=== PATIENT | male | born 1960 | race Caucasian/White ===

== ENCOUNTER 2019-06-15 20:06 | Inpatient (IN) ==
[~2019-06-15 20:06] MED LIST: ETOMIDATE 2 MG/ML 20 ML VIAL IV ONE; SUCCINYLCHOLINE CHLORIDE 20 MG/ML 10 ML VIAL IV ONE
[2019-06-15] MEDS ORDERED: NITROGLYCERIN 60 SPRAYS/4.9 GM SPRAY ONE (20:30)
[2019-06-15] MEDS ORDERED: ASPIRIN CHEW 324 MG ONE (20:30)
[2019-06-15] MEDS ORDERED: NITROGLYCERIN SL 0.4 MG/TAB TAB SL STA (20:31)
[2019-06-15] MEDS ORDERED: LORazepam 0.5 MG/1 ML VIAL IV STA (20:31)
[2019-06-15] MEDS ORDERED: SODIUM CHLORIDE 0.9% 1000ML 1,000 ML IV STA (20:31)
[2019-06-15] MEDS ORDERED: TICAGRELOR 90 MG TAB PO ONE (20:33)
[2019-06-15] MEDS ORDERED: ONDANSETRON INJ 2 MG/ML 2 ML VIAL IV STA (20:35)
[2019-06-15] MEDS ORDERED: fentaNYL citrate 100 MCG/2 ML VIAL IV STA (20:35)
[2019-06-15] MEDS ORDERED: fentaNYL citrate 100 MCG/2 ML VIAL ONE ×3 (20:36→23:57)
[2019-06-15] MEDS ORDERED: ONDANSETRON INJ 2 MG/ML 2 ML VIAL ONE (20:36)
[2019-06-15 20:41] LABS: iSTAT Creatinine 1.4 mg/dl (0.6-1.3); iSTAT Hemoglobin 14.3 g/dl (14.0-18.0); iSTAT Ionized Calcium 1.19 mmol/l (1.12-1.32); iSTAT Potassium 2.7 mEq/L (3.3-5.0)
[2019-06-15] MEDS ORDERED: POTASSIUM CHLORIDE / WTR 10 MEQ/100 ML PLCT IV ONE (20:42)
[2019-06-15] MEDS ORDERED: POTASSIUM CHLORIDE 10 MEQ / 100ML WTR IV ONE (20:43)
[2019-06-15] MEDS ORDERED: HEPARIN (PORCINE) 1000 UNIT/ML 10 ML (CATH LAB USE ONLY) ONE (20:43)
[2019-06-15] MEDS ORDERED: NiCARDipine HCL INJ 2.5 MG/ML 10 ML AMP ONE (20:43)
[2019-06-15] MEDS ORDERED: MIDAZOLAM HCL 1 MG/ML 2ML VIAL ONE ×4 (20:44→23:00)
[2019-06-15] MEDS ORDERED: NITROGLYCERIN/D5W 100MCG/ML 20ML SYR ONE (20:44)
[2019-06-15 20:47] LABS: Basophils # (auto) 0.09 K/uL (0-0.2); Basophils % (auto) 0.5 %; Eosinophils # (auto) 0.56 K/uL (0-0.5); Eosinophils % (auto) 3.2 %; Hematocrit (blood only) 41.6 % (42-52); Hemoglobin 14.7 g/dL (14.0-18.0); Immature Granulocytes # (auto) 0.08 K/uL (0.00-0.02); Immature Granulocytes % (auto) 0.5 %; Lymphocytes # (auto) 4.65 K/uL (1.2-3.4); Lymphocytes % (auto) 26.9 %; Mean Corpuscular Hemoglobin 31.6 pg (25-34); Mean Corpuscular Hgb Conc 35.3 g/dL (32-36); Mean Corpuscular Volume 89.5 fL (80-100); Mean Platelet Volume 9.3 fL (7.4-10.4); Monocytes % (auto) 7.5 %; Neutrophils # (auto) 10.62 K/uL (1.4-6.5); Neutrophils % (auto) 61.4 %; Platelet Count 378 K/uL (130-400); RDW Coefficient of Variation 13.5 % (11.5-14.5); RDW Standard Deviation 44.3 fL (36.4-46.3); Red Blood Count 4.65 M/uL (4.7-6.1)
[2019-06-15] MEDS ORDERED: ASPIRIN 81 MG CHEW PO STA (20:51)
[2019-06-15] MEDS ORDERED: ATROPINE SULFATE 0.1 MG/ML 10ML SYR IV ONE ×2 (20:52→21:17)
[2019-06-15 20:53] LABS: Alanine Aminotransferase 79 U/L (12-78); Aspartate Aminotransferase 47 U/L (15-37); BUN Creatinine Ratio 12.2 (10-20); Blood Urea Nitrogen 18 mg/dl (7-18); Calcium 9.1 mg/dl (8.5-10.1); Carbon Dioxide 25 mmol/L (21-32); Chloride 104 mmol/L (98-107); Est GFR (African American) 58.8; Est GFR (Non-African American) 50.7; Glucose 171 mg/dl (70-99); Lipase 122 U/L (73-393); Magnesium 2.2 mg/dl (1.8-2.4); Potassium 2.7 mmol/L (3.5-5.1); Sodium 139 mmol/L (136-145)
[2019-06-15 20:55] LABS: Partial Thromboplastin Ratio 0.8; Partial Thromboplastin Time 22.8 Seconds (21.0-31.0); Prothrombin Time 10.4 Seconds (9.0-12.0)
[2019-06-15 21:04] LABS: Albumin Globulin Ratio 1.2 (0.9-2); Alkaline Phosphatase 75 U/L (45-117); Bilirubin,Total 0.6 mg/dl (0.2-1); Creatine Kinase 296 U/L (39-308); Creatine Kinase MB 2.2 ng/ml (0.5-3.6); Globulin 3.4 gm/dl (2.5-4.0); Total Protein 7.4 gm/dl (6.4-8.2); Troponin I < 0.015 ng/ml (0-0.045)
[2019-06-15] MEDS ORDERED: LIDOCAINE 2% 20 MG/ML 5 ML SYR IV ONE ×2 (21:11→21:19)
--- NOTE | 2019-06-15 21:14 | XRay Report ---
SINGLE VIEW CHEST CLINICAL HISTORY: Atypical chest pain. FINDINGS: An AP, portable, upright chest radiograph is obtained. No prior studies are available for c omparison at the time of dictation. The examination is degraded by portable technique and apical lord otic positioning. The heart is enlarged. The pulmonary vasculature is noncongested. Minimal atelectas is is seen at the lung bases. No large pleural effusion or pneumothorax is seen. The bony thorax is g rossly intact. IMPRESSION: Mild cardiac enlargement with no acute cardiopulmonary abnormality. Electronically signed by: Jero Ziegler M.D. 06/15/2019 9:13 PM
[2019-06-15] MEDS ORDERED: RAPID SEQUENCE INDUCTION BAG ONE (21:23)
[2019-06-15] MEDS ORDERED: EPINEPHrine INJ 1 MG/ML AMP ONE (21:30)
[2019-06-15] MEDS ORDERED: NOREPINEPHRINE BITARTRATE 1 MG/ML 4 ML VIAL (CATH LAB USE ONLY) ONE (21:39)
[2019-06-15] MEDS ORDERED: ICU PROTOCOL FOR HYPERGLYCEMIA PRN (23:02)
--- NOTE | 2019-06-15 23:06 | Emergency Department Note ---
Entered by Carola Wagner acting as a scribe for Elias Cardoza MD ED Provider Note CHIEF COMPLAINT: Chest pain HISTORY OF PRESENT ILLNESS: The patient is a 59 year old male who presents to the Emergency Room with c omplaints of constant, sudden-onset chest pain that began at 19:30 this evening, about 1 hour ago. He rates the pain as a 4/10 in severity. The patient states that he was driving an RV when the began to feel lightheaded, diaphoretic, and nauseous along with chest pain. The patient complains of SOB. Pt denies LOC, headache, fevers, chills, visual changes, neck pain, vomiting, abdominal pain, back pain, melena, hematochezia, urinary symptoms, numbness, weakness, lymphadenopathy, rash, or other complaints. He denies any treatments SECY. The patient notes that he takes Cymbalta daily. He denies any blood thinner use and recent surgeries. REVIEW OF SYSTEMS: See HPI for pertinent positives and negatives. A total of ten systems were reviewed and were otherwise negative. PMHx/PSHx: Asthma, arthritis, HTN, HLD, and sleep apnea SOCIAL HISTORY: Patient lives at home. PHYSICAL EXAM: GENERAL: Uncomfortable appearing, awake HENT: Normocephalic, atraumatic. Oropharynx unremarkable. EYES: PERRL. Normal conjunctiva. Sclera non-icteric. NECK: Inspection normal. Non-tender. Supple. No nuchal rigidity. FROM. No masses. RESPIRATORY: Clear to auscultation. No wheezes. No rales. Normal respiratory effort. CARDIAC: Normal rate. Normal rhythm. No murmurs. No rubs. Extremities warm and w ell perfused. Pulses equal. No JVD. GI: Soft, non-distended. No tenderness to palpation. No rebound or guarding. No masses. RECTAL: Deferred. MUSCULOSKELETAL: Atraumatic. Chest examination reveals no tenderness. The back is symmetrical on inspection without obvious abnormality. There is no CVA tenderness to palpation. No joint edema. LOWER EXTREMITIES: Calves are equal size bilaterally and non-tender. No edema. No discoloration. NEURO: Normal sensorium. No sensory or motor deficits noted. SKIN: No rash or jaundice noted. Diaphoretic and pale. EMERGENCY DEPARTMENT COURSE: 2019: The patient was evaluated in room B01, and a complete history and physical examination were performed. 2034: The patient stated that his pain increased to a 5/10. He complains of persistent nausea. 2038: I spoke with Dr. Boyce, cardiology, about the patients case. He will take the patient to the cathode ray tube salvage processor. 2045: I spoke with Dr. Mir, [facility] hospitalist, about the patients case. He will further evaluate the patient. MEDICAL DECISION MAKING: Nursing notes reviewed and agree them. The patient's history was concerning for chest pain. Differential diagnosis: Etiologies such as cardiac ischemia, aortic dissection, pulmonary embolism, esophageal rupture, pneumonia, pneumothorax, musculoskeletal, infections, gastrointestinal, as well as others were entertained. Physical examination: Patient was acutely ill. Physical exam is as above. ER treatment provided: Asprin NTG 0.4mg SL IVP Fentanyl IV Zofran IV Ativan IV potassium 10 mEq On reassessment the patient felt better. Diagnostic interpretation: The electrocardiogram was significant for an acute myocardial infarction. The labs revealed normal chemistries and troponin by i-STAT and [id number] except for hypokalemia. Patient was found to have a leukocytosis on CBC. The following imaging studies were performed and reviewed by me: Chest x-ray performed. No pneumothorax, hemothorax or pneumonia. No evidence of widened mediastinum. Patient presented with concerning symptoms of chest pain. He was taken prompted back to her room and an ECG was performed. ECG was concerning for acute ST elevation MA. I probably evaluated the patient and ascertained he was having an acute myocardial infarction. The heart alert was initiated. The patient was t aken to the resuscitation room. Treatment provided as above. A consultation was made with Dr. Boyce of interventional cardiology. He evaluated the patient in the emergency department as part of the heart alert protocol. He agreed with the assessment of acute myocardial infarction and consented the patient for emergent catheterization treatment. The patient consented. The patient was taken emergently to the catheterization suite for further treatment of his acute myocardial infarction. IMPRESSION: Acute ST elevation MA PLAN: Admitted RESUSCITATION ADDENDUM: After arrival to the catheterization suite the patient underwent standard procedure for cardiac catheterization. He then had ventricular fibrillation event and was defibrillated. Medications were given in the standard ACLS fashion. CODE BLUE was called. I responded promptly to the catheterization suite. The patient was being attended to by Dr. Boyce. Catheterization was in progress. The patient was found alert. He did receive some sedation for the procedure and this was shortly after return of spontaneous circulation. He was moving his arms and legs somewhat. He was not protecting his airway at this point and there was concerns. Endotracheal intubation with RSI was deemed necessary. The patient underwent RSI in standard fashion as noted in the procedure note below. The post procedure pulse oximetry dropped into the low 80% range. The tube appeared to be in good position. Good breath sounds bilaterally. The cuff was checked. Oxygen connections were checked. With bagg ing his saturations then increased into the high 80s. He was perfusing at that point time. There is no evidence of cardiac arrest. He had a low but adequate blood pressure. The patient was placed on the ventilator and his O2 saturations dropped into the low 80s and then to the 77% range. He was taken off the ventilator and bagged. He was placed on a different wall oxygen source and saturations were then increased to the 88% range. He was placed back on the ventilator and saturations dropped again. The glide scope was utilized to verify the endotracheal tube was still within the trachea. Breath sounds were reassessed and equal. He was taken off the ventilator. A Peep valve was placed on a new [id number] and the patient was bagged up to the 88% range again. At that point the wall oxygen was discontinued and he was placed onto a oxygen tank. His oxygen saturations increased to the 96% range. At that point I directed respiratory to keep the patient off of the wall oxygen and keep the high flow oxygen via the portable oxygen tank. The patient maintained his oxygen saturations into the 96% range. Nursing did notify the sales warehouse driver about the apparent flow issue with oxygen. The patient's catheterization was completed successfully. His respiratory status stabilized and the ICU was made aware. The patient was transferred to the intensive care unit for further management. PROCEDURE: Endotracheal Intubation Indication: Cardiac arrest, ST elevation MA The patient was on 100% oxygen via BVM prior to the procedure. Suction, airway equipment, RSI drugs, respiratory equipment, and appropriate personnel were prepared prior to the initiation of the procedure. A time out was taken. Induction was performed with 20 mg of etomidate and 150 mg of succinylcholine. After observing the clinical benefit of the medications, the airway was easily visualized utilizing a glide scope. A 7.5 size ETT tube was placed atraumatic ally to 23 cm using standard technique. The cuff inflated without signs of malfunction. There were bilateral breath sounds, positive colormetric change, no gastric sounds, and post procedure pulse oximetry dropped into the low 80% range. Please see the above addendum resuscitation for further explanation and correction of the hypoxia. Post intubation sedation was done with boluses of fentanyl and Versed. CRITICAL CARE: I have personally spent 75 minutes of critical care time in the direct management of this patient. This includes bedside care, interpretation of diagnostic studies, and testing, discussion with consultants, patient, and other required patient management activities. This 75 minutes is in excess of all separately billable procedures. The scribe's documentation has been prepared under my direction and personally reviewed by me in its entirety. I confirm that the note above accurately reflects all work, treatment, procedures, and medical decision making performed by me. Impression & Plan ST elevation myocardial infarction (STEMI), Chest pain, Hypokalemia Past Med/Surg History Medical History Arthritis Asthma HLD (hyperlipidemia) HTN (hypertension) Sleep apnea Social History Feels Safe at Home: Yes Smoking Status: Never smoker Results & Data Vital Signs Vital Signs - 24 hr 06/15/19 20:12 06/15/19 20:26 06/15/19 20:29 Temperature 36.3 C L Temperature Source Oral Sepsis Recent Fever Within 48 Hours No Sepsis Action Taken by Nursing No Action Required Pulse Rate 48 L 54 L 52 L Pulse Rate from SpO2 Sensor 54 L 48 L Respiratory Rate 16 14 22 Respiratory Effort / Characteristics Non-Labored Respiratory Depth Normal Blood Pressure 134/86 162/88 H Blood Pressure Mean 102 112 Pulse Oximetry 98 97 100 Oxygen Delivery Method Room Air 06/15/19 20:30 06/15/19 20:38 06/15/19 20:40 Temperature Temperature Source Sepsis Recent Fever Within 48 Hours Sepsis Action Taken by Nursing Pulse Rate 55 L 48 L 55 L Pulse Rate from SpO2 Sensor 48 L 54 L Respiratory Rate 15 16 10 L Respiratory Effort / Characteristics Respiratory Depth Blood Pressure 151/98 H 135/76 Blood Pressure Mean 115 95 Pulse Oximetry 91 98 99 Oxygen Delivery Method Room Air 06/15/19 20:50 Temperature Temperature Source Sepsis Recent Fever Within 48 Hours Sepsis Action Taken by Nursing Pulse Rate 58 L Pulse Rate from SpO2 Sensor Respiratory Rate Respiratory Effort / Characteristics Respiratory Depth Blood Pressure Blood Pressure Mean Pulse Oximetry Oxygen Delivery Method Home Medications Current Medication List: was personally reviewed by me Laboratory Data Attestation: I reviewed the patient's lab results. Result diagrams: 06/15/19 20:18 06/15/19 20:18 Lab Results 06/15/19 06/15/19 06/15/19 Range/Units 20:18 20:18 20:28 WBC 17.30 H (4.8-10.8) K/uL RBC 4.65 L (4.7-6.1) M/uL Hgb 14.7 (14.0-18.0) g/dL POC Hgb (14.0-18.0) g/dl Hct 41.6 L (42-52) % POC Hct (42-52) % MCV 89.5 (80-100) fL MCH 31.6 (25-34) pg MCHC 35.3 (32-36) g/dL RDW Std Deviation 44.3 (36.4-46.3) fL RDW Coeff of Collins 13.5 (11.5-14.5) % Plt Count 378 (130-400) K/uL MPV 9.3 (7.4-10.4) fL Immature Gran % (Auto) 0.5 % Neut % (Auto) 61.4 % Lymph % (Auto) 26.9 % O'Brien % (Auto) 7.5 % Eos % (Auto) 3.2 % Baso % (Auto) 0.5 % Immature Gran # (Auto) 0.08 H (0.00-0.02) K/uL Neut # (Auto) 10.62 H (1.4-6.5) K/uL Lymph # (Auto) 4.65 H (1.2-3.4) K/uL O'Brien # (Auto) 1.30 H (0.11-0.59) K/uL Eos # (Auto) 0.56 H (0-0.5) K/uL Baso # (Auto) 0.09 (0-0.2) K/uL PT (9.0-12.0) Seconds INR (0.9-1.1) APTT (21.0-31.0) Seconds PTT Ratio POC Sodium (135-144) mEq/L Sodium 139 (136-145) mmol/L POC Potassium (3.3-5.0) mEq/L Potassium 2.7 L (3.5-5.1) mmol/L POC Chloride (101-112) mEq/L Chloride 104 (98-107) mmol/L Carbon Dioxide 25 (21-32) mmol/L POC Total CO2 (24-31) mEq/l Anion Gap 10.0 (3-11) POC Anion Gap (16-25) mmol/L POC BUN (7-18) mg/dl BUN 18 (7-18) mg/dl Creatinine 1.48 H (0.6-1.4) mg/dl POC Creatinine (0.6-1.3) mg/dl Est Cr Clr Drug Dosing Not Reportable Est GFR ( Amer) 58.8 Est GFR (Non-Af Amer) 50.7 BUN/Creatinine Ratio 12.2 (10-20) Glucose 171 H (70-99) mg/dl POC Glucose (other) (70-99) mg/dl Calcium 9.1 (8.5-10.1) mg/dl POC Ioniz Calcium Farzad (1.12-1.32) mmol/l Magnesium 2.2 (1.8-2.4) mg/dl Total Bilirubin 0.6 (0.2-1) mg/dl AST 47 H (15-37) U/L ALT 79 H (12-78) U/L Alkaline Phosphatase 75 (45-117) U/L Total Creatine Kinase 296 (39-308) U/L CK-MB (CK-2) 2.2 (0.5-3.6) ng/ml CK/CKMB % Calc 0.7 (0-3.0) POC Troponin I < 0.03 (0-0.045) ng/ml Troponin I < 0.015 (0-0.045) ng/ml Total Protein 7.4 (6.4-8.2) gm/dl Albumin 4.0 (3.4-5.0) gm/dl Globulin 3.4 (2.5-4.0) gm/dl Albumin/Globulin Ratio 1.2 (0.9-2) Lipase 122 (73-393) U/L TSH 1.990 (0.300-4.500) uIu/ml 06/15/19 06/15/19 Range/Units 20:29 20:35 WBC (4.8-10.8) K/uL RBC (4.7-6.1) M/uL Hgb (14.0-18.0) g/dL POC Hgb 14.3 (14.0-18.0) g/dl Hct (42-52) % POC Hct 42 (42-52) % MCV (80-100) fL MCH (25-34) pg MCHC (32-36) g/dL RDW Std Deviation (36.4-46.3) fL RDW Coeff of Collins (11.5-14.5) % Plt Count (130-400) K/uL MPV (7.4-10.4) fL Immature Gran % (Auto) % Neut % (Auto) % Lymph % (Auto) % O'Brien % (Auto) % Eos % (Auto) % Baso % (Auto) % Immature Gran # (Auto) (0.00-0.02) K/uL Neut # (Auto) (1.4-6.5) K/uL Lymph # (Auto) (1.2-3.4) K/uL O'Brien # (Auto) (0.11-0.59) K/uL Eos # (Auto) (0-0.5) K/uL Baso # (Auto) (0-0.2) K/uL PT 10.4 (9.0-12.0) Seconds INR 1.0 (0.9-1.1) APTT 22.8 (21.0-31.0) Seconds PTT Ratio 0.8 POC Sodium 140 (135-144) mEq/L Sodium (136-145) mmol/L POC Potassium 2.7 L (3.3-5.0) mEq/L Potassium (3.5-5.1) mmol/L POC Chloride 100 L (101-112) mEq/L Chloride (98-107) mmol/L Carbon Dioxide (21-32) mmol/L POC Total CO2 25 (24-31) mEq/l Anion Gap (3-11) POC Anion Gap 18.0 (16-25) mmol/L POC BUN 18 (7-18) mg/dl BUN (7-18) mg/dl Creatinine (0.6-1.4) mg/dl POC Creatinine 1.4 H (0.6-1.3) mg/dl Est Cr Clr Drug Dosing Est GFR ( Amer) Est GFR (Non-Af Amer) BUN/Creatinine Ratio (10-20) Glucose (70-99) mg/dl POC Glucose (other) 181 H (70-99) mg/dl Calcium (8.5-10.1) mg/dl POC Ioniz Calcium Farzad 1.19 (1.12-1.32) mmol/l Magnesium (1.8-2.4) mg/dl Total Bilirubin (0.2-1) mg/dl AST (15-37) U/L ALT (12-78) U/L Alkaline Phosphatase (45-117) U/L Total Creatine Kinase (39-308) U/L CK-MB (CK-2) (0.5-3.6) ng/ml CK/CKMB % Calc (0-3.0) POC Troponin I (0-0.045) ng/ml Troponin I (0-0.045) ng/ml Total Protein (6.4-8.2) gm/dl Albumin (3.4-5.0) gm/dl Globulin (2.5-4.0) gm/dl Albumin/Globulin Ratio (0.9-2) Lipase (73-393) U/L TSH (0.300-4.500) uIu/ml Administered Medications Discontinued Medications Aspirin (Aspirin) Confirm Administered Dose 324 mg .ROUTE .Finanzchef24-HESKA ONE Stop: 06/15/19 20: Last Admin: 06/15/19:35 Dose: 324 mg Documented by: [id number] Fentanyl Citrate (Fentanyl Citrate) 50 mcg IV NOW STA Stop: 06/15/19 20:36 Last Admin: 06/15/19 20:37 Dose: 50 mcg Documented by: [id number] Lorazepam (Ativan) 0.5 mg in 1 mls @ 1 mls/min IV NOW STA Stop: 06/15/19 20:32 Last Admin: 06/15/19 20:36 Dose: 1 mls/min Documented by: [id number] Nitroglycerin (Nitrolingual) Confirm Administered Dose 60 sprays .ROUTE .Finanzchef24-MED ONE Stop: 06/15/19 20:31 Last Admin: 06/15/19 20:35 Dose: 1 sprays Documented by: [id number] Ondansetron HCl (Zofran) 4 mg IV NOW STA Stop: 06/15/19 20:36 Last Admin: 06/15/19 20:37 Dose: 4 mg Documented by: [id number] Ticagrelor (Brilinta) Confirm Administered Dose 180 mg PO .STK-MED ONE Stop: 06/15/19 20:34 Last Admin: 06/15/19 22:25 Dose: 180 mg Documented by: [id number] Imaging Data Radiologist's Impression: Radiology results as stated below per my review and the radiologist's interpretation: SINGLE VIEW CHEST CLINICAL HISTORY: Atypical chest pain. FINDINGS: An AP, portable, upright chest radiograph is obtained. No prior studies are available for comparison at the time of dictation. The examination is degraded by portable technique and apical lordotic positioning. The heart is enlarged. The pulmonary vasculature is noncongested. Minimal atelectasis is seen at the lung bases. No large pleural effusion or pneumothorax is seen. The bony thorax is grossly intact. IMPRESSION: Mild cardiac enlargement with no acute cardiopulmonary abnormality. Electronically signed by: Jero Ziegler M.D. 06/15/2019 9:13 PM ECG Data Attestation: I personally reviewed and interpreted this ECG as follows: Indication: chest pain Rate (beats per minute): 55 Rhythm: atrial fibrillation (with slow response ) Findings: + ST elevation (anterolateral and inferior leads ) Comparison ECG Date: no prior available Blood Pressure Blood Pressure Findings: Elevated blood pressure Blood Pressure Disposition: further management by hospitalist Discharge Plan Visit Data Chief Complaint: Cardiac Assessment Stated Complaint: POSSIBLE HEART ATTACK ED Provider: Elias Cardoza Discharge Problem: ST elevation myocardial infarction (STEMI), Chest pain, Hypokalemia Patient Disposition: Being Evaluated by Hospitalist Discharge Instructions Interventions: ED Discharge Assessment Last Done: 06/15/19 20:54 The scribe's documentation has been prepared under my direction and personally r eviewed by me in its entirety. I confirm that the note above accurately reflects all work, treatment, procedures, and medical decision making performed by me.
[2019-06-15] MEDS ORDERED: MIDAZOLAM HCL 125 MG/250 ML BAG IV STA (23:12)
[2019-06-15] MEDS ORDERED: PATIENT'S HEIGHT AND/OR WEIGHT NEEDED SCH (23:30)
[2019-06-15] MEDS ORDERED: NOREPINEPHRINE BIT INJ 8 MG in DEXTROSE 5% 500 ML IV PRN (23:30)
[2019-06-15 23:47] LABS: Basophils # (auto) 0.03 K/uL (0-0.2); Basophils % (auto) 0.2 %; Eosinophils # (auto) 0.07 K/uL (0-0.5); Eosinophils % (auto) 0.4 %; Hematocrit (blood only) 35.3 % (42-52); Hemoglobin 12.7 g/dL (14.0-18.0); Immature Granulocytes % (auto) 0.6 %; Lymphocytes # (auto) 1.45 K/uL (1.2-3.4); Lymphocytes % (auto) 8.6 %; Mean Corpuscular Hemoglobin 31.6 pg (25-34); Mean Corpuscular Volume 87.8 fL (80-100); Monocytes # (auto) 0.75 K/uL (0.11-0.59); Monocytes % (auto) 4.4 %; Neutrophils # (auto) 14.55 K/uL (1.4-6.5); Neutrophils % (auto) 85.8 %; Platelet Count 323 K/uL (130-400); RDW Coefficient of Variation 13.5 % (11.5-14.5); RDW Standard Deviation 43.3 fL (36.4-46.3); Red Blood Count 4.02 M/uL (4.7-6.1); White Blood Count 16.95 K/uL (4.8-10.8)
[2019-06-15 23:57] LABS: iSTAT Arterial Blood Gas HCO3 26 meg/L (19-24); iSTAT Arterial Blood Gas pCO2 51 mmHg (35-46); iSTAT Arterial Blood Gas pH 7.32 (7.35-7.45); iSTAT Arterial Blood Gas pO2 185 mmHg (80-95); iSTAT Carbon Dioxide 27 mEq/l (24-31); iSTAT FiO2 100 %; iSTAT Site Art Line
--- NOTE | 2019-06-16 00:04 | Critical Care Consultation ---
Date of Consultation May This note reflects care of patient on admission date 06/15/2019. Assessment & Plan (1) Admitted to intensive care unit: Reason Critically Ill: 59-year-old male with acute ST segment elevation myocardial infarction status post PTCI with JAZZY x1 to the RCA with complication of V. fib responding to defibrillation. Patient remains endotracheally intubated for airway protection. NEURO - * CAM ICU: Unable to assess secondary to sedation. * Status post arrest. Patient opens eyes to name. Nods his head. Agitated with stimuli. At this point, would not proceed further with TTM. * Will keep the patient intubated and sedated overnight with reassessment in the AM for hopeful early extubation. * Sedation/Analgesia: Versed gtt, Fentanyl PRN CARDIAC/VASCULAR - * Acute Inferior STEMI s/p PTCI w/ JAZZY x1 to the RCA: * Complicated by intraprocedural v-fib arrest. * Responded to defibrillation. * Continue Lidocaine gtt at this point. * Patient w/ purposeful movements, responding to stimuli and commands, nodding head and opening eyes. TTM not indicated. * Titrate off Levophed as tolerated. * Transvenous pacer in place if needed. * ASCVD per typical -- to be started as patient tolerates. * AM Echo. * Trend Trops * Monitor on telemetry. RESPIRATORY - * Endotracheally Intubated: * In the setting of v-fib arrest. * Titrate down FiO2 as tolerated. * Trend ABGs. * Hopeful for early extubation. GI/NUTRITION - * NG in place. * NPO currently w/ hopes of early extubation. RENAL/LYTES - * KENNEDI on presentation: * Presumed w/o hitorical labs. * Continue IVF s/p IVC burden. * IVF: NSS@100mL/hr * Hypokalemia: * Received IV K in the ED. * Continue to monitor --> replace appropriately. - * Chirinos in place - Strict I&Os. ENDO - * No h/o DM or Thyroid Dz * BSGs per unit protocol. ISS --> gtt per unit policy. HEME - * Stable H&H * Monitor for s/s bleeding s/p intervention. ID - * No concerns for infectious contribution at this time. * Trend fever curve. LINES/IV ACCESS - * PIVs x2 * RIGHT Femoral A-line. * RIGHT Femoral Transvenous pacer. * LEFT Femoral venous sheath. * ET Tube * Chirinos DVT PROPHYLAXIS - * Hold s/p intervention and Brilinta load. DAPT to be started. * SCDs I have personally spent 60 minutes of critical care time in the direct management of this patient. This is a life/limb threatening event. This includes time spent evaluating patient, direct bedside care, chart review, placing orders, interpretation of diagnostic studies, discussion with consultants, patient, and family members, as well as other required patient management activities. This time is exclusive of all separately billable procedures, and teaching time and separate from and in addition to any other critical care service time. Thank you for allowing us to participate in the care of this patient. Please refer to my attending physician's documentation for any further recommendations. (2) ST elevation myocardial infarction (STEMI): (3) Chest pain: (4) Hypokalemia: (5) RCA occlusion: (6) Cardiac arrest with ventricular fibrillation: (7) Hypertension: (8) Hyperlipidemia: (9) Sleep apnea: (10) S/P drug eluting coronary stent placement: (11) Endotracheally intubated: Supervising Physician Co-Signing Physician Notes Seen and examined. Refer to my note from this AM. Agree with A/p as noted by JOSELYN Mirza History of Present Illness Attending Physician: Bandar Mir MD History of Present Illness THIS NOTE REFLECTS ADMISSION OF PATIENT TO BE DATED 06/15/2019. Patient is a 59-year-old male with past medical history of asthma, arthritis, hypertension, hyperlipidemia, and obstructive sleep apnea who presented to the emergency department this evening with crushing substernal chest pain. During evaluation, the patient was found to have an acute ST segment elevation myocardial infarction. Heart alert was called and the patient was subsequently taken to the catheterization suite. Patient's intervention was complicated by short period of ventricular fibrillation requiring short time of ACLS techniques and defibrillation with return of spontaneous circulation. Patient was intubated for airway protection by emergency medicine provider. Patient had successful PTCI w/ JAZZY x1 to the RCA. Patient was placed on levo fed and lidocaine drips and subsequently transferred to the ICU for continued management. Upon arrival in the ICU, the patient is sedated, however he does initially respond to painful stimuli. The patient does open his eyes. He nods his head yes or no. He responds to name. He coughs and points to his chest per pain. HPI limited secondary to patient's current state of intubation with sedation. Allergies Allergy/AdvReac Type Severity Reaction Status Date / Time No Known Allergies Allergy Verified 06/15/19 20:51 Patient History Medical History Arthritis Asthma HLD (hyperlipidemia) HTN (hypertension) Sleep apnea Social History Preferred Language: Kazakh Funeral Planner Required: No Beliefs That Will Affect Care: None Current Living Situation: Family Current Living Situation Comment: Pt daughter is living with patient Feels Safe at Home: Yes Smoking Status: Never smoker Hx Alcohol Use: No Hx Substance Use: No Review of Systems Review of Systems: Unobtainable due to endotracheal tube Physical Exam Physical Exam: VITAL SIGNS - Vital signs and nursing notes were reviewed. GENERAL - 59-year-old male appearing his stated age who is in no acute distress. HEAD - NC/AT. EYES - PERRL with EOMI bilaterally. Sclera anicteric. EARS - No deformities of external structures noted on gross examination bilaterally. NOSE - Midline and without cyanosis. MOUTH/OROPHARYNX - Without perioral cyanosis. Buccal mucosa pink and moist. NECK - Neck with FROM. Supple to palpation. LUNGS - Chest wall symmetric without accessory muscle use, intercostals retractions, or central cyanosis. Normal vesicular breath sounds CTA B/L. No wheezes, rales, or rhonchi appreciated. CARDIAC - RRR with S1/S2. No murmur, rubs, or gallops appreciated. ABDOMEN - Abdominal contour obese without pulsations or visible masses. BS normoactive all four quadrants. No tenderness, palpable masses, hepatosplenomegaly, or ascites noted. EXTREMITIES - No clubbing or peripheral cyanosis. No pretibial edema present. +3/5 radial and dorsalis pedis pulses palpated throughout. +5/5 strength noted in UE/LE bilaterally. NEUROLOGIC/PSYCH -response to minimal stimuli. Nods his head yes or no. Opens eyes to name. Agitated with intubation. No focal neurological deficits appreciated. Results & Data Vital Signs (Past 12 Hours) Vital Signs Temp Pulse Pulse Resp BP BP Pulse Ox 06/15/19 22:50 36.5 C 85 21 138/90 100 06/15/19 20:50 58 L 06/15/19 20:40 55 L 10 L 135/76 99 06/15/19 20:38 48 L 16 98 06/15/19 20:30 55 L 15 151/98 H 91 06/15/19 20:29 52 L 22 100 06/15/19 20:26 54 L 14 162/88 H 97 06/15/19 20:12 36.3 C L 48 L 16 134/86 98 Coding Level of Care Code None Diagnoses Admitted to intensive care unit Z78.9 ST elevation myocardial infarction (STEMI) I21.3 Chest pain R07.9 Hypokalemia E87.6 RCA occlusion I24.0 Cardiac arrest with ventricular fibrillation I46.9; I49.01 Hypertension I10 Hyperlipidemia E78.5 Sleep apnea G47.30 S/P drug eluting coronary stent placement Z95.5 Endotracheally intubated Z97.8 Time Spent (min) 60 Comment 60 minutes of critical care time in the direct management of this patient. This is a life/limb threatening event. This includes time spent evaluating patient, direct bedside care, chart review, placing orders, interpretation of diagnostic studies, discussion with consultants, patient, and family members, as well as other required patient management activities. This time is exclusive of all separately billable procedures, and teaching time and separate from and in addition to any other critical care service time.
[2019-06-16] MEDS: FAMOTIDINE 20 MG in SYRINGE 3 ML IV SCH ×2 (00:11→07:50)
[2019-06-16] MEDS: NSS + 20MEQ KCL 20 MEQ/1,000 ML BAG IV SCH ×3 (00:12→16:12)
[2019-06-16 00:22] LABS: Albumin Globulin Ratio 1.3 (0.9-2); Albumin Level 3.5 gm/dl (3.4-5.0); BUN Creatinine Ratio 12.8 (10-20); Bilirubin,Total 0.5 mg/dl (0.2-1); Calcium 8.1 mg/dl (8.5-10.1); Creatinine Clr Calc Pharmacy 66.9 ml/min; Est GFR (African American) 62.8; Est GFR (Non-African American) 54.2; Globulin 2.8 gm/dl (2.5-4.0); Magnesium 2.1 mg/dl (1.8-2.4); Potassium 3.7 mmol/L (3.5-5.1); Total Protein 6.3 gm/dl (6.4-8.2)
[2019-06-16] MEDS: fentaNYL citrate 100 MCG/2 ML VIAL IV PRN ×4 (01:29→07:48)
--- NOTE | 2019-06-16 03:56 | History & Physical Report ---
Date of Service June 16, 2019 Assessment & Plan (1) ST elevation myocardial infarction (STEMI): Chest pain as presenting symptom/posterior and inferior STEMI on EKG/cardiac arrest secondary to ventricular fibrillation while being prepped for cardiac cath/RCA occlusion with stenting/intubation for airway protection- Patient is being admitted to the ICU. Presently on ventilator with AC mode. Order ABG, CBC with differential, chemistry profile, magnesium, troponin immediately post catheterization. Post-cath orders per Dr. Boyce. Present on Admission?: Yes (2) RCA occlusion: See Dr. Boyce's report. Present on Admission?: Yes (3) Cardiac arrest with ventricular fibrillation: Patient underwent cardiac arrest due to ventricular fibrillation as he was being prepped for cardiac catheterization. He was shocked 3 times, received epinephrine and other measure, with ROSC. Present on Admission?: Yes (4) Chest pain: Patient's initial presenting symptom was substernal chest pain that developed while he was driving his motor home. Present on Admission?: Yes (5) Abnormal findings on cardiac catheterization: RCA occlusion with stenting as noted by Dr. Boyce. Present on Admission?: Yes (6) Admitted to intensive care unit: Patient is admitted to the ICU, intubated, status post cardiac arrest secondary to ventricular fibrillation, status post cardiac catheterization, with status post RCA stenting. Present on Admission?: Yes (7) Asthma: Unknown medication list at this time. Patient presently intubated. DuoNeb's will be used as needed. Present on Admission?: Yes (8) Hypokalemia: Replace with IV supplementation. Follow serial BMP and magnesium levels. Present on Admission?: Yes (9) Hyperlipidemia: We will check a fasting lipid panel and hemoglobin A1c Present on Admission?: Yes (10) Sleep apnea: Unknown if patient is on CPAP at home. History can be further clarified with family arrives. Presently intubated on ventilator. Present on Admission?: Yes History of Present Illness Chief Complaint: The patient presents to the emergency department after developing chest pain while driving his motor home in for the [employer] versus [place] football game. Primary Care Provider: NO PCP The patient is a 59-year-old male who presented to the emergency department with the development of severe substernal chest pain while driving his motor home. His friend who was with him, noted the severity of his condition, and brought him to the emergency department for assessment. In the emergency department he was found to have [address] elevations in the inferior chest leads, with reciprocal changes in chest leads. He was then converted to a heart alert, and was taken to the [facility] by Dr. Boyce. Allergies Allergy/AdvReac Type Severity Reaction Status Date / Time No Known Allergies Allergy Verified 06/15/19 20:51 Past Med/Surg History Medical History Arthritis Asthma HLD (hyperlipidemia) HTN (hypertension) Sleep apnea Social History Preferred Language: Luxembourgish Brick Stacker Required: No Beliefs That Will Affect Care: None Current Living Situation: Family Current Living Situation Comment: Pt daughter is living with patient Feels Safe at Home: Yes Smoking Status: Never smoker Hx Alcohol Use: No Hx Substance Use: No Review of Systems Review of Systems: Unobtainable due to cognitive status Patient was assessed by me after undergoing cardiac catheterization and sedation and as I was admitting him to the ICU. Physical Exam Physical Exam: The patient is intubated, partially sedated, intermittently agitated. HEENT--PERRL, EOMI, mucous membranes and oropharynx dry. Neck--No JVD. No bruits. Heart--normal S1 and S2. No murmurs, rubs or gallops. Lungs-- few coarse breath sounds bilaterally. Abdomen--normal bowel sounds and soft. Nontender. Nondistended. Extremities--no cyanosis or clubbing. No edema. There are good distal pulses b/l. Dermatologic--normal skin turgor, normal color, no abnormal lymph nodes, no rash. Neurologic--cranial nerves II through XII grossly intact. Rheumatologic--normal range of motion. Psychiatric--normal affect. Results & Data Vital Signs (Past 12 Hours) Vital Signs Temp Pulse Pulse Resp BP BP Pulse Ox 06/16/19 02:00 69 126/84 100 06/16/19 01:31 75 96 06/16/19 01:30 75 139/88 95 06/16/19 01:16 72 98 06/16/19 01:15 73 132/81 98 06/16/19 01:01 76 94 06/16/19 01:00 77 128/82 94 06/16/19 00:46 74 100 06/16/19 00:45 75 134/93 100 06/16/19 00:31 76 97 06/16/19 00:30 75 130/85 97 06/16/19 00:16 77 94 06/16/19 00:15 77 120/77 94 06/16/19 00:01 85 100 06/16/19 00:00 86 151/80 H 100 06/15/19 23:46 77 100 06/15/19 23:45 77 118/76 100 06/15/19 23:44 84 22 100 06/15/19 23:31 79 100 06/15/19 23:30 80 127/80 100 06/15/19 23:16 86 100 06/15/19 23:15 87 133/75 100 06/15/19 23:01 95 H 25 H 95/72 L 100 06/15/19 23:00 94 H 14 100 06/15/19 22:50 97.7 F 85 21 138/90 100 06/15/19 20:50 58 L 06/15/19 20:40 55 L 10 L 135/76 99 06/15/19 20:38 48 L 16 98 06/15/19 20:30 55 L 15 151/98 H 91 06/15/19 20:29 52 L 22 100 06/15/19 20:26 54 L 14 162/88 H 97 06/15/19 20:12 97.3 F L 48 L 16 134/86 98 Laboratory Results Laboratory Results WBC 16.95 K/uL (4.8-10.8) H 06/15/19 23:37 RBC 4.02 M/uL (4.7-6.1) L 06/15/19 23:37 Hgb 12.7 g/dL (14.0-18.0) L 06/15/19 23:37 POC Hgb 14.3 g/dl (14.0-18.0) 06/15/19 20:29 Hct 35.3 % (42-52) L 06/15/19 23:37 POC Hct 42 % (42-52) 06/15/19 20:29 MCV 87.8 fL (80-100) 06/15/19 23:37 MCH 31.6 pg (25-34) 06/15/19 23:37 MCHC 36.0 g/dL (32-36) 06/15/19 23:37 RDW Std Deviation 43.3 fL (36.4-46.3) 06/15/19 23:37 RDW Coeff of Collins 13.5 % (11.5-14.5) 06/15/19 23:37 Plt Count 323 K/uL (130-400) 06/15/19 23:37 MPV 9.0 fL (7.4-10.4) 06/15/19 23:37 Immature Gran % (Auto) 0.6 % 06/15/19 23:37 Neut % (Auto) 85.8 % 06/15/19 23:37 Lymph % (Auto) 8.6 % 06/15/19 23:37 [place] % (Auto) 4.4 % 06/15/19 23:37 Eos % (Auto) 0.4 % 06/15/19 23:37 Baso % (Auto) 0.2 % 06/15/19 23:37 Immature Gran # (Auto) 0.10 K/uL (0.00-0.02) H 06/15/19 23:37 Neut # (Auto) 14.55 K/uL (1.4-6.5) H 06/15/19 23:37 Lymph # (Auto) 1.45 K/uL (1.2-3.4) 06/15/19 23:37 [place] # (Auto) 0.75 K/uL (0.11-0.59) H 06/15/19 23:37 Eos # (Auto) 0.07 K/uL (0-0.5) 06/15/19 23:37 Baso # (Auto) 0.03 K/uL (0-0.2) 06/15/19 23:37 PT 10.4 Seconds (9.0-12.0) 06/15/19 20:35 INR 1.0 (0.9-1.1) 06/15/19 20:35 APTT 22.8 Seconds (21.0-31.0) 06/15/19 20:35 PTT Ratio 0.8 06/15/19 20:35 Sample Site Art Line 06/15/19 23:43 POC pH 7.32 (7.35-7.45) L 06/15/19 23:43 POC pCO2 51 mmHg (35-46) H 06/15/19 23:43 POC pO2 185 mmHg (80-95) H 06/15/19 23:43 POC HCO3 26 jed/L (19-24) H 06/15/19 23:43 POC Total CO2 27 mEq/l (24-31) 06/15/19 23:43 POC Base Excess 0.0 jed/L (-9-1.8) 06/15/19 23:43 POC ABG O2 Sat 100.0 % (90-95) H 06/15/19 23:43 Gregorio Test NA 06/15/19 23:43 O2 Delivery Device Ventilator 06/15/19 23:43 POC O2 Rate 18 06/15/19 23:43 POC FiO2 100 % 06/15/19 23:43 Tidal Volume 500 06/15/19 23:43 PEEP 8 06/15/19 23:43 POC Sodium 140 mEq/L (135-144) 06/15/19 20:29 Sodium 139 mmol/L (136-145) 06/15/19 23:37 POC Potassium 2.7 mEq/L (3.3-5.0) L 06/15/19 20:29 Potassium 3.7 mmol/L (3.5-5.1) D 06/15/19 23:37 POC Chloride 100 mEq/L (101-112) L 06/15/19 20:29 Chloride 106 mmol/L (98-107) 06/15/19 23:37 Carbon Dioxide 28 mmol/L (21-32) 06/15/19 23:37 POC Total CO2 25 mEq/l (24-31) 06/15/19 20:29 Anion Gap 5.0 (3-11) 06/15/19 23:37 POC Anion Gap 18.0 mmol/L (16-25) 06/15/19 20:29 POC BUN 18 mg/dl (7-18) 06/15/19 20:29 BUN 18 mg/dl (7-18) 06/15/19 23:37 Creatinine 1.40 mg/dl (0.6-1.4) 06/15/19 23:37 POC Creatinine 1.1 mg/dl (0.6-1.3) 06/15/19 23:39 Est Cr Clr Drug Dosing 66.9 ml/min 06/15/19 23:37 Est GFR ( Amer) 62.8 06/15/19 23:37 Est GFR (Non-Af Amer) 54.2 06/15/19 23:37 BUN/Creatinine Ratio 12.8 (10-20) 06/15/19 23:37 Glucose 171 mg/dl (70-99) H 06/15/19 23:37 POC Glucose (other) 181 mg/dl (70-99) H 06/15/19 20:29 Calcium 8.1 mg/dl (8.5-10.1) L 06/15/19 23:37 POC Ioniz Calcium Farzad 1.19 mmol/l (1.12-1.32) 06/15/19 20:29 Magnesium 2.1 mg/dl (1.8-2.4) 06/15/19 23:37 Total Bilirubin 0.5 mg/dl (0.2-1) 06/15/19 23:37 AST 102 U/L (15-37) H 06/15/19 23:37 ALT 101 U/L (12-78) H 06/15/19 23:37 Alkaline Phosphatase 64 U/L (45-117) 06/15/19 23:37 Total Creatine Kinase 296 U/L (39-308) 06/15/19 20:18 CK-MB (CK-2) 2.2 ng/ml (0.5-3.6) 06/15/19 20:18 CK/CKMB % Calc 0.7 (0-3.0) 06/15/19 20:18 POC Troponin I < 0.03 ng/ml (0-0.045) 06/15/19 20:28 Troponin I 9.000 ng/ml (0-0.045) H* 06/15/19 23:37 Total Protein 6.3 gm/dl (6.4-8.2) L 06/15/19 23:37 Albumin 3.5 gm/dl (3.4-5.0) 06/15/19 23:37 Globulin 2.8 gm/dl (2.5-4.0) 06/15/19 23:37 Albumin/Globulin Ratio 1.3 (0.9-2) 06/15/19 23:37 Triglycerides 83 mg/dl (0-150) 06/15/19 23:37 Cholesterol 152 mg/dl (0-200) 06/15/19 23:37 LDL Cholesterol, Calc 103 mg/dl 06/15/19 23:37 VLDL Cholesterol, Calc 17 mg/dl 06/15/19 23:37 HDL Cholesterol 32 mg/dl 06/15/19 23:37 Cholesterol/HDL Ratio 5 06/15/19 23:37 Lipase 122 U/L (73-393) 06/15/19 20:18 TSH 1.990 uIu/ml (0.300-4.500) 06/15/19 20:18 [phone] Report Patient: ANGELES ENGLEAdmit Date: 06/15/19 MR#: [id number]: [address] Acct ID:[id number]: Date: [address] Zip: [place] [address] Age: 59Location: CC Sex: M Room/Bed: Att Phy: Jose Angel Boyce DODiagnosis: POSSIBLE HEART ATTACK Josephine Phy: PCP,NOService Date: 06/15/19 Fam Phy:Interpreting Phy: Jero Ziegler MD Admit Phy: Ordering Phy: Elias Cardoza MD cc: ~ SINGLE VIEW CHEST CLINICAL HISTORY: Atypical chest pain. FINDINGS: An AP, portable, upright chest radiograph is obtained. No prior studies are available for comparison at the time of dictation. The examination is degraded by portable technique and apical lordotic positioning. The heart is enlarged. The pulmonary vasculature is noncongested. Minimal atelectasis is seen at the lung bases. No large pleural effusion or pneumothorax is seen. The bony thorax is grossly intact. IMPRESSION: Mild cardiac enlargement with no acute cardiopulmonary abnormality. Electronically signed by: Jero Ziegler M.D. 06/15/2019 9:13 PM Dictated: 06/15/192111 Transcribed: 06/15/192111 Code Status & VTE Plan Code Status Full code VTE Prophylaxis Plan VTE Prophylaxis will be ordered: Yes Critical Care Time Critical Care Time: Yes Total Critical Care Time: 45 Total critical care time was 45 minutes PG Care Time/CCT Total # of Minutes Spent Total Time Spent with Patient: Total time spent is greater than 50% in coordination of care (as documented) at patient's floor/unit and/or counseling patient: Critical Care Time: Yes Total Critical Care Time: 45
[2019-06-16 04:25] LABS: Basophils # (auto) 0.02 K/uL (0-0.2); Basophils % (auto) 0.1 %; Eosinophils # (auto) 0.02 K/uL (0-0.5); Eosinophils % (auto) 0.1 %; Hematocrit (blood only) 34.2 % (42-52); Hemoglobin 12.1 g/dL (14.0-18.0); Immature Granulocytes # (auto) 0.04 K/uL (0.00-0.02); Immature Granulocytes % (auto) 0.3 %; Lymphocytes # (auto) 1.52 K/uL (1.2-3.4); Lymphocytes % (auto) 10.2 %; Mean Corpuscular Hgb Conc 35.4 g/dL (32-36); Mean Corpuscular Volume 87.7 fL (80-100); Neutrophils # (auto) 12.43 K/uL (1.4-6.5); Neutrophils % (auto) 83.3 %; Nucleated RBC # (auto) 0.02 K/uL (0-0); Nucleated RBC % (auto) 0.1 %; Platelet Count 281 K/uL (130-400); RDW Coefficient of Variation 13.6 % (11.5-14.5); RDW Standard Deviation 43.4 fL (36.4-46.3); White Blood Count 14.93 K/uL (4.8-10.8)
[2019-06-16 04:37] LABS: Partial Thromboplastin Ratio 0.9; Partial Thromboplastin Time 24.8 Seconds (21.0-31.0); Prothrombin Time 10.6 Seconds (9.0-12.0)
[2019-06-16 04:47] LABS: Albumin Level 3.3 gm/dl (3.4-5.0); Bilirubin Direct 0.1 mg/dl (0-0.2); Creatinine Clr Calc Pharmacy 83.6 ml/min; Est GFR (African American) 82.3; Magnesium 1.9 mg/dl (1.8-2.4); Phosphorus 2.6 mg/dl (2.5-4.9); Potassium 3.7 mmol/L (3.5-5.1)
[2019-06-16 04:58] LABS: Bilirubin,Total 0.6 mg/dl (0.2-1); Total Protein 6.1 gm/dl (6.4-8.2); Troponin I 31.7 ng/ml (0-0.045)
[2019-06-16 05:53] LABS: iSTAT Arterial Blood Gas HCO3 24 meg/L (19-24); iSTAT Arterial Blood Gas pCO2 40 mmHg (35-46); iSTAT Arterial Blood Gas pH 7.39 (7.35-7.45); iSTAT Arterial Blood Gas pO2 84 mmHg (80-95); iSTAT Carbon Dioxide 25 mEq/l (24-31); iSTAT FiO2 55 %; iSTAT Site Art Line
--- NOTE | 2019-06-16 06:18 | XRay Report ---
XR chest 1V portable CLINICAL HISTORY: tube placement tube position COMPARISON STUDY: 06/15/2019 FINDINGS: Endotracheal tube placed 3 cm above the bradley. Lungs remain grossly clear. Mild increase i n prominence of the pulmonary vasculature. IMPRESSION: Endotracheal tube placed 3 cm above the bradley. Nasogastric tube inferior to the diaphra gm. The above report was generated using voice recognition software. It may contain grammatical, syntax or spelling errors. Electronically signed by: Byron Barahona M.D. 06/16/2019 6:17 AM
--- NOTE | 2019-06-16 06:36 | XRay Report ---
XR KUB/Abdomen 1 view CLINICAL HISTORY: tube placement tube position COMPARISON STUDY: No previous studies for comparison. FINDINGS: Nasogastric tube placed within the mid stomach IMPRESSION: Nasogastric tube placed in the mid stomach The above report was generated using voice recognition software. It may contain grammatical, syntax or spelling errors. Electronically signed by: Byron Barahona M.D. 06/16/2019 6:34 AM
--- NOTE | 2019-06-16 07:11 | XRay Report ---
XR chest 1V portable CLINICAL HISTORY: on ventilator dyspnea COMPARISON STUDY: 06/15/2019 FINDINGS: Endotracheal tube 3 cm above the bradley. Nasogastric tube is within the stomach. Lungs remain grossly clear. Bronchovascular prominence persists. IMPRESSION: Tube positions considered acceptable. Unchanged prominence of the pulmonary vasculature. Mild stable cardiomegaly. The above report was generated using voice recognition software. It may contain grammatical, syntax or spelling errors. Electronically signed by: Byron Barahona M.D. 06/16/2019 7:10 AM
[2019-06-16 07:35] LABS: Estimated Average Glucose 117 mg/dl; Hemoglobin A1C 5.7 % (4.5-5.6)
--- NOTE | 2019-06-16 07:52 | Communication Note ---
Date of Service: June 16, 2019 Patient seen and examined. Discussed with JOSELYN Mirza. Electronic medical record extensively reviewed. Agree with assessment and plan as indicated in JOSELYN 9 minutes critical care consultation. Briefly this is a 59-year-old male with a history of sleep disordered breathing asthma hyperlipidemia and hypertension who developed substernal chest pain. He was brought to the emergency room. He had ST elevations. He had a brief run of nonsustained ventricular tachycardia. He did receive CPR and defibrillation. He was intubated and eventually underwent percutaneous intervention with a drug- eluting stent to the right coronary artery. He had femoral arterial and venous sheaths placed and prophylactically had a venous pacing wire floated. He was b rought to the ICU intubated. He did not receive therapeutic hypothermia as he was neurologically intact after his arrest. He remained intubated overnight at the request of the interventional list. This morning the patient is awake and able to follow commands on the ventilator he was briefly on levo fed but this is been weaned off. Impression: 59-year-old male with hypertension hyperlipidemia and sleep apnea now status post ST elevation myocardial infarction with associated VT likely ischemic. Recommendations: 1. Acute coronary syndrome: Echo pending this morning. Patient is currently re ceiving aspirin, Brilinta, drip per cardiology. We will add 6.25 mg of metoprolol to ensure that he tolerates it and titrate up. Additional interventions per cardiology. Troponins per cardiology 2. Ventricular tachycardia: Likely ischemic. No additional arrhythmia evaluation warranted in the setting of reversible ischemia. Additional management per cardiology. 3. Respiratory failure: Patient intubated after arrest. He is on pressure support ventilation this morning and appears to be doing well. He appears neurologically intact. We will plan on extubating him in weaning to oxygen via nasal cannula. 4. Sleep disordered breathing: Continue nightly CPAP. We will see if the patient can bring in his home machine. If not we will try and use empiric settings or auto CPAP 5-12 cmH2O. 5. Once he is extubated will consider advancing his diet later this afternoon. Activity per cardiology. We will continue to follow while in the intensive care unit. Will sign off once he leaves the ICU.
[2019-06-16] MEDS ORDERED: INFLUENZA ADMINISTRATION CHARGE ONE (08:15)
[2019-06-16] MEDS ORDERED: INFLUENZA VIRUS QUAD VACCINE 0.5 ML SYR IM ONE (08:15)
[2019-06-16] MEDS ORDERED: CALCIUM CHLORIDE 10% 1,000 MG in SODIUM CHLORIDE 0.9% 50 ML IV ONE (08:30)
[2019-06-16] MEDS ORDERED: METOPROLOL TARTRATE 25 MG TAB PO SCH (09:00)
--- NOTE | 2019-06-16 16:55 | Hospitalist Progress Note ---
Date of Service June 16, 2019 Assessment & Plan (1) ST elevation myocardial infarction (STEMI): Posterior and inferior STEMI on EKG. He had a cardiac arrest secondary to ventricular fibrillation while being prepped for cardiac cath. RCA was found to be occluded with stent - Underwent PCI to JAZZY on 06/15; complicated by vfib arrest. - Echo on 06/16 shows EF 65-70% with mild inferior wall hypokinesis - Continue aspirin, ticagrelor, beta-olivier, statin (2) RCA occlusion: S/p JAZZY to RCA on 06/15. - See above (3) Cardiac arrest with ventricular fibrillation: Patient underwent cardiac arrest due to ventricular fibrillation as he was being prepped for cardiac catheterization. He was shocked 3 times, received epinephrine and other measure, with ROSC. - Presently hemodynamically stable - Plan for discharge in the morning if stable (4) Asthma: Unknown medication list at this time. - DuoNebs PRN (5) Sleep apnea: Patient brought home CPAP. (6) DVT prophylaxis: Lovenox Subjective A bit confused this afternoon. Answers a few questions off and makes jokes that don't entirely make sense. However, no chest pain. No shortness of breath. Reports no fevers/chills, abdominal pain, nausea, or vomiting. Physical Exam Constitutional: well nourished and + obese Eyes: EOM intact bilaterally; no conjunctival abnormality ENMT: external ear and nose normal, oropharynx normal Neck: trachea midline, no thyromegaly normal visual inspection Respiratory: normal respiratory effort, lungs clear to auscultation no respiratory distress Cardiovascular: RRR, no murmur, no edema Gastrointestinal (Abdomen): Inspection/Auscultation: abdomen normal to inspection; abdomen not distended Musculoskeletal: no cyanosis or clubbing, extremities motor strength 5/5 Skin: no rashes, warm and dry Neurologic: moves all extremities and awake Psychiatric: Orientation: alert, oriented to person and cooperative Thought Process: + tangential thought process Results & Data Vital Signs (Past 12 Hours) Vital Signs Temp Pulse Resp BP Pulse Ox 06/16/19 16:00 65 23 134/82 94 06/16/19 15:00 65 21 131/77 91 06/16/19 14:01 69 22 94 06/16/19 14:00 67 20 136/77 95 06/16/19 13:30 66 18 140/83 94 06/16/19 13:00 69 19 133/76 95 06/16/19 12:30 70 20 132/77 96 06/16/19 12:00 37.3 C 69 19 138/83 97 06/16/19 11:40 68 19 126/78 94 06/16/19 11:35 69 19 129/75 93 06/16/19 11:31 70 133/84 89 L 06/16/19 11:25 66 141/79 H 99 06/16/19 11:20 70 129/88 96 06/16/19 11:15 67 138/73 98 06/16/19 11:10 68 143/85 H 99 06/16/19 11:05 67 135/89 99 06/16/19 11:00 67 138/82 98 06/16/19 10:55 66 136/90 98 06/16/19 10:50 67 145/79 H 99 06/16/19 10:45 67 138/88 98 06/16/19 10:40 67 143/86 H 98 06/16/19 10:37 67 19 97 06/16/19 10:35 66 137/83 98 06/16/19 10:30 66 142/78 H 97 06/16/19 10:25 66 139/82 97 06/16/19 10:20 66 135/97 97 06/16/19 10:15 71 141/86 H 98 06/16/19 10:10 66 144/90 H 97 06/16/19 10:05 67 146/85 H 96 06/16/19 10:00 71 133/102 H 98 06/16/19 09:55 68 150/94 H 92 06/16/19 09:50 69 148/90 H 100 06/16/19 09:40 69 149/88 H 100 06/16/19 09:30 69 144/87 H 99 06/16/19 09:20 68 146/78 H 99 06/16/19 09:10 67 146/90 H 98 06/16/19 09:05 70 140/87 99 06/16/19 09:03 68 142/83 H 98 06/16/19 09:00 69 152/82 H 99 06/16/19 08:00 37.5 C 74 139/77 93 06/16/19 07:25 69 14 100 06/16/19 07:00 68 141/91 H 100 06/16/19 06:00 68 123/78 100 06/16/19 05:48 70 20 99 06/16/19 05:00 69 139/86 100 PG Care Time/CCT Total # of Minutes Spent Total Time Spent with Patient: Total time spent is greater than 50% in coordination of care (as documented) at patient's floor/unit and/or counseling patient:
[2019-06-16] MEDS: ASPIRIN 81 MG CHEW PO SCH (17:56)
[2019-06-16] MEDS ORDERED: ACETAMINOPHEN 325 MG TAB PO STA (19:50)
[2019-06-16] MEDS: TICAGRELOR 90 MG TAB PO SCH (20:07)
[2019-06-16] MEDS: ATORVASTATIN 40 MG TAB PO SCH (20:07)
[2019-06-16] MEDS: METOPROLOL TARTRATE 25 MG TAB PO SCH (20:08)
[2019-06-16] MEDS ORDERED: CHLORASEPTIC 1.4% SOLN 180 ML BTL MT PRN ×2 (20:47→20:51)
[2019-06-17 04:24] LABS: Basophils # (auto) 0.02 K/uL (0-0.2); Basophils % (auto) 0.2 %; Eosinophils # (auto) 0.19 K/uL (0-0.5); Eosinophils % (auto) 1.7 %; Hemoglobin 11.3 g/dL (14.0-18.0); Immature Granulocytes # (auto) 0.05 K/uL (0.00-0.02); Immature Granulocytes % (auto) 0.4 %; Lymphocytes # (auto) 2.29 K/uL (1.2-3.4); Lymphocytes % (auto) 20.1 %; Mean Corpuscular Hemoglobin 31.2 pg (25-34); Mean Corpuscular Hgb Conc 34.2 g/dL (32-36); Mean Corpuscular Volume 91.2 fL (80-100); Mean Platelet Volume 9.3 fL (7.4-10.4); Monocytes % (auto) 7.9 %; Neutrophils # (auto) 7.93 K/uL (1.4-6.5); Neutrophils % (auto) 69.7 %; Platelet Count 247 K/uL (130-400); RDW Coefficient of Variation 13.9 % (11.5-14.5); RDW Standard Deviation 46.1 fL (36.4-46.3); Red Blood Count 3.62 M/uL (4.7-6.1); White Blood Count 11.38 K/uL (4.8-10.8)
[2019-06-17 04:56] LABS: Albumin Level 3.1 gm/dl (3.4-5.0); BUN Creatinine Ratio 13.1 (10-20); Bilirubin Direct 0.3 mg/dl (0-0.2); Calcium 8.4 mg/dl (8.5-10.1); Creatinine Clr Calc Pharmacy 74.1 ml/min; Est GFR (African American) 70.7; Magnesium 1.9 mg/dl (1.8-2.4); Phosphorus 2.2 mg/dl (2.5-4.9); Potassium 3.3 mmol/L (3.5-5.1); Total Protein 5.8 gm/dl (6.4-8.2)
[2019-06-17] MEDS ORDERED: POTASSIUM PHOS 3 MMOL/1 ML INFUSION IV STA (05:38)
[2019-06-17] MEDS ORDERED: POTASSIUM CHLORIDE 20 MEQ TABCR PO STA (05:38)
[2019-06-17] MEDS ORDERED: POTASSIUM PHOSPHATE 15 MMOL in SODIUM CHLORIDE 0.9% 250 ML IV ONE (05:45)
--- NOTE | 2019-06-17 07:58 | Progress Note ---
Date of Service June 17, 2019 Assessment & Plan (1) ST elevation myocardial infarction (STEMI): Posterior and inferior STEMI on EKG. He had a cardiac arrest secondary to ventricular fibrillation while being prepped for cardiac cath. RCA was found to be occluded with stent - Underwent PCI to JAZZY on 06/15; complicated by vfib arrest. - Echo on 06/16 shows EF 65-70% with mild inferior wall hypokinesis - Continue aspirin, ticagrelor, beta-olivier, statin (2) RCA occlusion: S/p JAZZY to RCA on 06/15. - See above (3) Cardiac arrest with ventricular fibrillation: Patient underwent cardiac arrest due to ventricular fibrillation as he was being prepped for cardiac catheterization. He was shocked 3 times, received epinephrine and other measure, with ROSC. - Presently hemodynamically stable (4) Asthma: Unknown medication list at this time. - DuoNebs PRN (5) Sleep apnea: Patient brought home CPAP. (6) DVT prophylaxis: Lovenox (7) S/P admission to ICU (intensive care unit): Impression: 59-year-old male with acute ST elevation myocardial infarction status post drug-eluting stent to the RCA. Case complicated by VT arrest r equiring defibrillation and CPR Recommendations: Plan as noted above. The patient is stable to transfer out of the ICU. Ultimate disposition per the hospitalist service. Will sign off. Please call if additional pulmonary critical care questions Subjective Patient was extubated yesterday morning. He is done well overnight. Sheaths were removed. He is tolerating a diet. He does complain of some mild diffuse body aches but no recurrent chest pain pressure or palpitations. No syncope or presyncope. He is hemodynamically stable and is tolerating low-dose of beta- olivier. Review of Systems Review of Systems: All systems reviewed & are unremarkable except as noted in HPI & below Physical Exam Constitutional: WD/WN, vitals as above Neck: trachea midline, no thyromegaly Respiratory: normal respiratory effort, lungs clear to auscultation Cardiovascular: RRR, no murmur, no edema Gastrointestinal (Abdomen): normal bowel sounds, soft, nontender, no hepatosplenomegaly Musculoskeletal: Extremities: extremities normal to inspection Skin: no rashes, warm and dry Neurologic: Nonfocal exam Lymphatic: no cervical lymphadenopathy Results & Data Vital Signs (Past 12 Hours) Vital Signs Temp Pulse Resp BP Pulse Ox 06/17/19 06:00 64 12 129/72 95 06/17/19 05:00 61 22 114/63 93 06/17/19 04:37 65 14 134/69 97 06/17/19 04:00 37.2 C 64 16 113/67 93 06/17/19 03:00 63 14 132/69 95 06/17/19 02:01 65 15 143/80 H 96 06/17/19 01:00 67 16 107/59 L 93 06/17/19 00:00 65 16 121/58 L 92 06/16/19 23:00 37.6 C H 63 19 127/62 93 06/16/19 22:00 75 24 130/65 92 06/16/19 21:00 77 22 120/68 91 06/16/19 20:00 76 24 134/64 93 Laboratory Results 06/17/19 04:10 06/17/19 04:10 Diagnostic Findings Today's independently reviewed. The lungs are well aerated. There is some slight haziness at the left lung base but the cardiac silhouette and diaphragmatic silhouettes are present. Echo showed ejection fraction 65-70 with mild MR and mild TR. Concentric LVH was noted. Mild inferior wall hypokinesis. Right ventricle not well visualized PG Care Time/CCT Total # of Minutes Spent Total Time Spent with Patient: Total time spent is greater than 50% in coordination of care (as documented) at patient's floor/unit and/or counseling patient:
--- NOTE | 2019-06-17 08:01 | XRay Report ---
XR chest 1V portable HISTORY: Respiratory distress. Extubation. on ventilator COMPARISON: Chest 06/16/2019. FINDINGS: Endotracheal tube is been removed. The heart is normal in size. No pleural effusions. No pn eumothorax. No evidence for pulmonary edema. No new focal lung consolidations. Small linear density a t the left lung base favor subsegmental atelectasis. IMPRESSION: No acute process within the chest. Interval extubation. Electronically signed by: Doe Shoemaker M.D. 06/17/2019 8:00 AM
[2019-06-17] MEDS: TICAGRELOR 90 MG TAB PO SCH ×2 (08:26→20:27)
[2019-06-17] MEDS: METOPROLOL TARTRATE 25 MG TAB PO SCH ×2 (08:26→20:27)
[2019-06-17] MEDS: ASPIRIN 81 MG CHEW PO SCH (08:27)
[2019-06-17] MEDS ORDERED: TRAMADOL HCL 50 MG TABLET PO PRN (09:45)
[2019-06-17] MEDS: DULOXETINE HCL 30 MG CAP PO SCH (12:07)
--- NOTE | 2019-06-17 13:05 | Cardiology Progress Note ---
Date of Service June 17, 2019 Assessment & Plan (1) ST elevation myocardial infarction (STEMI): He is doing well following his STEMI with emergent stent placement complicated by ventricular fibrillation. He has residual chest discomfort however I believe he did receive some amount of CPR, his symptoms do not suggest ongoing ischemia and his electrocardiogram does not show it. I believe he is doing well following his STEMI and he is now day 2 following that event. We should keep in the hospital until at least tomorrow, depending on how things look on the monitor. (2) Cardiac arrest with ventricular fibrillation: He had ventricular fibrillation associated with a STEMI, this should not predispose him for future events however he should be maintained on a beta- olivier and we need to keep him on telemetry and look for further arrhythmias. If he has no further arrhythmias he should not need to be sent home with a LifeVest given that his left ventricular ejection fraction following his event was preserved. (3) CAD (coronary artery disease): He has coronary artery disease, he has a strong family history of it and he has been on atorvastatin but has not been seeing a member service representative. He needs to continue risk factor modification, he does not smoke but he is overweight and he does not exercise regularly in a formal way and he has a poor diet according to him and his family who are present. I discussed risk factor modification with him and he will need to go on a healthier diet, try to lose weight and exercise more, as well as continue antiplatelet agents and an increase in cholesterol medications. He also needs to make sure that his blood pressure is under good control. There is probably little else that we can do. Subjective He is feeling much better today, he has residual chest and abdominal discomfort which by his description sounds musculoskeletal not ischemic. He has not been out of bed, he feels that his thinking is clear now and is starting to have some discomfort from his arthritis. He seems to be tolerating his current medications well. Physical Exam Physical Exam: Constitutional: Alert, cooperative and in no distress. Pulmonary: Clear to auscultation bilaterally. Cardiac: Regular rhythm with no murmur, gallop or rub. Abdomen: Soft, nontender with normal bowel sounds. Extremities: No edema. Skin: No rash, ecchymoses or petechiae. Results & Data Vital Signs (Past 12 Hours) Vital Signs Temp Pulse Resp BP Pulse Ox 06/17/19 12:01 61 18 115/57 L 96 06/17/19 11:00 62 20 114/62 96 06/17/19 10:00 67 21 120/69 93 06/17/19 09:00 69 23 130/70 90 06/17/19 08:00 78 21 134/77 91 06/17/19 07:00 62 18 123/60 97 06/17/19 06:00 64 12 129/72 95 06/17/19 05:00 61 22 114/63 93 06/17/19 04:37 65 14 134/69 97 06/17/19 04:00 37.2 C 64 16 113/67 93 06/17/19 03:00 63 14 132/69 95 06/17/19 02:01 65 15 143/80 H 96 Diagnostic Findings Electrocardiogram: This shows evolution of his inferior myocardial infarction. Echocardiography: Inferior wall motion abnormalities but overall preserved left ventricular function Telemetry: Sinus rhythm, no significant arrhythmia PG Care Time/CCT Total # of Minutes Spent Total Time Spent with Patient: Total time spent is greater than 50% in coordination of care (as documented) at patient's floor/unit and/or counseling patient:
[2019-06-17] MEDS: TRAMADOL HCL 50 MG TABLET PO PRN ×2 (13:52→20:30)
--- NOTE | 2019-06-17 14:32 | Hospitalist Progress Note ---
Date of Service June 17, 2019 Assessment & Plan (1) ST elevation myocardial infarction (STEMI): Posterior and inferior STEMI on EKG. He had a cardiac arrest secondary to ventricular fibrillation while being prepped for cardiac cath. RCA was found to be occluded with stent - Underwent PCI to JAZZY on 06/15; complicated by vfib arrest. - Echo on 06/16 shows EF 65-70% with mild inferior wall hypokinesis - Continue aspirin, ticagrelor, beta-olivier, statin - Monitor for 72 hours after STEMI - Technically until Tuesday at 11:00pm. Cardiology indicated he might be able to be discharged tomorrow (Tuesday) evening. Will need to check the tele for any arrhythmias. He had 6 beats of VT on Tuesday morning, but nothing sustained. - I discussed the paramount importance of taking his ASA & ticagrelor. In this case, Dr. Rosa thought that continuing ticagrelor on discharge would be beneficial instead of switching to clopidogrel. (2) RCA occlusion: S/p JAZZY to RCA on 06/15. - See above (3) Cardiac arrest with ventricular fibrillation: Patient underwent cardiac arrest due to ventricular fibrillation as he was being prepped for cardiac catheterization. He was shocked 3 times, received epinephrine and other measure, with ROSC. - Presently hemodynamically stable (4) Arthritis: Has long-standing arthritis. - Continue home duloxetine 60mg (only started about 1 week ago, so not really helping much at this time.) - Patient feels tramadol is helping his arthritis and the pain from his defibrillations (5) Sleep apnea: Patient brought home CPAP. (6) DVT prophylaxis: Lovenox Subjective Feeling achy all over. He is especially sore in the chest and abdomen. He has chronic arthritis in his shoulders, knees, and ankles. Reports no fevers/chills, shortness of breath, nausea, or vomiting. Physical Exam Constitutional: well nourished and + obese Eyes: EOM intact bilaterally; no conjunctival abnormality ENMT: external ear and nose normal, oropharynx normal Neck: trachea midline, no thyromegaly normal visual inspection Respiratory: normal respiratory effort, lungs clear to auscultation no respiratory distress Cardiovascular: RRR, no murmur, no edema Gastrointestinal (Abdomen): Inspection/Auscultation: abdomen normal to inspection; abdomen not distended Musculoskeletal: no cyanosis or clubbing, extremities motor strength 5/5 Skin: no rashes, warm and dry Neurologic: moves all extremities and awake Psychiatric: Orientation: alert, oriented to person and cooperative Thought Process: + tangential thought process Results & Data Vital Signs (Past 12 Hours) Vital Signs Temp Pulse Resp BP Pulse Ox 06/17/19 13:39 62 06/17/19 12:01 61 18 115/57 L 96 06/17/19 11:00 62 20 114/62 96 06/17/19 10:00 67 21 120/69 93 06/17/19 09:00 69 23 130/70 90 06/17/19 08:00 78 21 134/77 91 06/17/19 07:00 62 18 123/60 97 06/17/19 06:00 64 12 129/72 95 06/17/19 05:00 61 22 114/63 93 06/17/19 04:37 65 14 134/69 97 06/17/19 04:00 37.2 C 64 16 113/67 93 06/17/19 03:00 63 14 132/69 95 PG Care Time/CCT Total # of Minutes Spent Total Time Spent with Patient: Total time spent is greater than 50% in coordination of care (as documented) at patient's floor/unit and/or counseling patient:
[2019-06-17] MEDS: POT PHOSPHATE MONOBASIC W/ SOD TAB PO SCH ×2 (16:38→20:28)
[2019-06-17] MEDS: ATORVASTATIN 40 MG TAB PO SCH (20:28)
[2019-06-18] MEDS: ACETAMINOPHEN 325 MG TAB PO PRN (05:20)
[2019-06-18 07:22] LABS: Basophils # (auto) 0.03 K/uL (0-0.2); Basophils % (auto) 0.3 %; Eosinophils # (auto) 0.36 K/uL (0-0.5); Eosinophils % (auto) 3.5 %; Hematocrit (blood only) 33.6 % (42-52); Hemoglobin 11.5 g/dL (14.0-18.0); Immature Granulocytes # (auto) 0.03 K/uL (0.00-0.02); Immature Granulocytes % (auto) 0.3 %; Lymphocytes # (auto) 1.82 K/uL (1.2-3.4); Lymphocytes % (auto) 17.6 %; Mean Corpuscular Hgb Conc 34.2 g/dL (32-36); Mean Corpuscular Volume 90.6 fL (80-100); Mean Platelet Volume 9.6 fL (7.4-10.4); Monocytes # (auto) 0.82 K/uL (0.11-0.59); Monocytes % (auto) 7.9 %; Neutrophils % (auto) 70.4 %; Platelet Count 246 K/uL (130-400); RDW Coefficient of Variation 13.8 % (11.5-14.5); RDW Standard Deviation 45.7 fL (36.4-46.3); Red Blood Count 3.71 M/uL (4.7-6.1); White Blood Count 10.36 K/uL (4.8-10.8)
[2019-06-18 07:52] LABS: BUN Creatinine Ratio 14.4 (10-20); Bilirubin Direct 0.3 mg/dl (0-0.2); Calcium 8.1 mg/dl (8.5-10.1); Creatinine Clr Calc Pharmacy 76.5 ml/min; Est GFR (African American) 72.8; Est GFR (Non-African American) 62.8; Magnesium 2.1 mg/dl (1.8-2.4); Potassium 3.1 mmol/L (3.5-5.1)
[2019-06-18 07:57] LABS: Bilirubin,Total 1.3 mg/dl (0.2-1); Total Protein 5.8 gm/dl (6.4-8.2)
--- NOTE | 2019-06-18 08:01 | Operative Report ---
DATE OF OPERATION: 06/15/2019 PORT-A-CATH AND PCI INDICATIONS: Acute inferoposterior and RV infarct. PROCEDURE PERFORMED: Left heart catheterization, coronary cineangiography, emergency coronary care, placement of temporary pacemaker, placement of arterial line, placement of venous access, PCI with drug-eluting stent x1, proximal right coronary artery, radiological interpretation and supervision. METHOD: Upon arrival in the test lab technician, the patient was prepped and draped in the usual sterile fashion. After local infiltration with 2% lidocaine, a 6-Lebanese sheath was placed in the right radial artery. Intravenous nicardipine and nitroglycerin were administered. The sheath was aspirated and flushed. A 6-Lebanese AR2 guiding catheter was advanced over a wire under fluoroscopic guidance to the central circulation where it was aspirated and flushed. After confirmation of adequate waveforms, it was advanced into the right coronary artery. Cineangiograms of the right coronary artery obtained and reviewed. Intravenous heparin was administered and titrated to an ACT on the order of 250 seconds. A 0.014-inch Esthetician/Owner wire was advanced through the guiding catheter. Before it could cross, it could be used to cross the proximally occluded right coronary artery. The patient's rhythm deteriorated to ventricular fibrillation requiring unsuccessful repeated defibrillation. CPR was initiated. Intravenous lidocaine was administered. A 6-Lebanese sheath was placed in the right femoral vein. Intravenous fluids were initiated. Repeated defibrillation resulted in a wide complex rhythm, unable to identify P waves. Transient bradycardia required atropine. A rebolus of lidocaine was initiated on a drip of 2 mg per minute was started. The guiding was readvanced into the right coronary artery and a 0.014-inch Esthetician/Owner wire was advanced through the guiding catheter across the distal posterolateral branch. A 2.0 Mini Trek 15 angioplasty catheter positioned in the proximal right coronary and inflated to maximum pressure of less than a minute. Balloon was withdrawn. A 4.0 x 15 drug-eluting stent was placed in the proximal right coronary and inflated to maximum pressure less than a minute. Balloon was withdrawn. The guiding catheter was removed from the right coronary artery under fluoroscopic guidance, removed the body over the wire, the sheath was aspirated and flushed. (Code had been called and work was initiated to intubate the patient, repeated notations were made as to hypoxemia with a pulse ox to his low at 67%.) Hypotension was treated with 100 mcg of intravenous epinephrine, which resulted in profound tachycardia. Later recurrent episodes of hypotension resulted in administration of intravenous Levophed. A 6-Lebanese EBU 3.5 guiding catheter was advanced over wire under fluoroscopic guidance to the central circulation where it was aspirated and flushed. After confirmation of adequate waveform, it was advanced into the left main. Cineangiograms of the left coronary obtained and reviewed. The catheter removed from body over the wire, sheath was aspirated and flushed. A 5-Lebanese angled tip pigtail was used to cross the aortic valve in retrograde fashion. Left ventricular end diastolic pressure was measured. The catheter removed from left ventricle to the aortic position. Pressure monitoring removed from body over wire and sheath was aspirated and flushed. Rhythm became AIVR on opening the right coronary artery. As heart rate slowed and QRS narrowed, there was still high-degree AV block. Thus, a 5-Lebanese balloon tipped bipolar pacing wire was advanced under fluoroscopic guidance to the right ventricular apex. Given the RV infarct, repeated ventricular fibrillation, the pacemaker was not tested, but left in place, sutured to the sheath in the right groin. A sheath was placed in the left femoral vein for administration of medications with a pacemaker in place. A 4-Lebanese dilator was placed for A-line in the right femoral artery and sutured to the right groin. After all lines were secured, the patient returned to his room in guarded condition. COMPLICATIONS: As above. FINDINGS: Right coronary artery is totally occluded in its proximal portion. The left main is relatively small, but free of significant disease. Left circumflex, circumflex marginal and posterolateral branches are free of significant disease. Left anterior descending artery has a mid 50% stenosis before the bifurcation into a large diagonal branch. Remainder of the LAD is free of significant disease to the apex. Left ventricular end diastolic pressure is elevated. Final cineangiograms demonstrate no residual stenosis, no uncovered dissection with FRANCO grade 3 flow in the right coronary artery. IMPRESSION: Acute inferoposterior lateral and RV infarct complicated by ventricular fibrillation, high-degree AV block and hypotension, successful PCI of the proximal right coronary artery. Recommendation is aggressive medical therapy in the acute phase of the PA. I attest to the content of the Intraoperative Record and any orders documented therein. Any exception s are noted below.
[2019-06-18] MEDS: POT PHOSPHATE MONOBASIC W/ SOD TAB PO SCH ×2 (08:12→12:53)
[2019-06-18] MEDS: DULOXETINE HCL 30 MG CAP PO SCH (08:12)
[2019-06-18] MEDS: METOPROLOL TARTRATE 25 MG TAB PO SCH (08:12)
[2019-06-18] MEDS: ASPIRIN 81 MG CHEW PO SCH (08:13)
[2019-06-18] MEDS: TICAGRELOR 90 MG TAB PO SCH ×2 (08:13→21:11)
[2019-06-18] MEDS: TRAMADOL HCL 50 MG TABLET PO PRN ×3 (08:16→21:16)
[2019-06-18] MEDS ORDERED: POTASSIUM CHLORIDE 20 MEQ TABCR PO STA (08:54)
[2019-06-18] MEDS ORDERED: METOPROLOL TARTRATE 25 MG TAB PO STA (11:05)
--- NOTE | 2019-06-18 12:10 | Cardiology Progress Note ---
Date of Service June 18, 2019 Assessment & Plan (1) ST elevation myocardial infarction (STEMI): He is doing relatively well following his STEMI with emergent stent placement complicated by ventricular fibrillation with multiple cardioversions and CPR. He has residual chest discomfort however I believe he did receive some amount of CPR, his symptoms do not suggest ongoing ischemia and his electrocardiogram did not show it. I believe he is doing well following his STEMI and he is now day 3 following that event. We should keep in the hospital another day I believe, he is quite fatigued with activities, he has a 2-1/[address] upon discharge and he did have the ventricular ectopy. (2) Cardiac arrest with ventricular fibrillation: He had ventricular fibrillation associated with a STEMI, this should not predispose him for future events however he should be maintained on a beta- olivier and we need to keep him on telemetry and look for further arrhythmias. I am little concerned about the increase in ventricular ectopy he had yesterday, it was very frequent premature ventricular beats and ventricular couplets but only occurred for several hours and that was within about 48 hours of his event. I am going to increase his beta-olivier today and watch him another day on the monitor. (3) CAD (coronary artery disease): He has coronary artery disease, he has a strong family history of it and he has been on atorvastatin but has not been seeing a tea tree farm worker. He needs to continue risk factor modification, he does not smoke but he is overweight and he does not exercise regularly in a formal way and he has a poor diet according to him and his family who are present. I discussed risk factor modification with him and he will need to go on a healthier diet, try to lose weight and exercise more, as well as continue antiplatelet agents and an increase in cholesterol medications. He also needs to make sure that his blood pressure is under good control. There is probably little else that we can do. His liver function tests are elevated, that is probably due to his resuscitation but I am a little bit concerned about using high-dose atorvastatin in the setting. I do not think it reflects an intolerance to statins but that could potentiate it. Since that is a long-term medication I am going to place it on hold for the moment. Subjective He is feeling relatively well today. He was up and ambulatory for the first time this morning, he was surprised how fatigued he was with minimal activity. He did not have exertional chest discomfort and was not really short of breath just fatigued. He has had no palpitations and no chest discomfort. Physical Exam Physical Exam: Constitutional: Alert, cooperative and in no distress. Pulmonary: Clear to auscultation bilaterally. Cardiac: Regular rhythm with no murmur, gallop or rub. Abdomen: Soft, nontender with normal bowel sounds. Extremities: No edema. Skin: No rash, ecchymoses or petechiae. Results & Data Vital Signs (Past 12 Hours) Vital Signs Temp Pulse Resp BP Pulse Ox 06/18/19 11:45 90 06/18/19 11:30 36.9 C 55 L 20 134/80 91 06/18/19 07:19 37.2 C 57 L 18 143/81 H 90 06/18/19 04:38 38.0 C H 62 18 126/71 92 Laboratory Results Abnormal lab results 06/15/19 06/15/19 06/18/19 Range/Units 21:09 21:37 06:53 RBC 3.71 L (4.7-6.1) M/uL Hgb 11.5 L (14.0-18.0) g/dL Hct 33.6 L (42-52) % Immature Gran # (Auto) 0.03 H (0.00-0.02) K/uL Neut # (Auto) 7.30 H (1.4-6.5) K/uL Saunders # (Auto) 0.82 H (0.11-0.59) K/uL Activ Coag Time Kaolin 180 H 153 H (94-140) SECONDS Potassium (3.5-5.1) mmol/L Calcium (8.5-10.1) mg/dl Total Bilirubin (0.2-1) mg/dl Direct Bilirubin (0-0.2) mg/dl AST (15-37) U/L ALT (12-78) U/L Total Protein (6.4-8.2) gm/dl Albumin (3.4-5.0) gm/dl 06/18/19 Range/Units 06:53 RBC (4.7-6.1) M/uL Hgb (14.0-18.0) g/dL Hct (42-52) % Immature Gran # (Auto) (0.00-0.02) K/uL Neut # (Auto) (1.4-6.5) K/uL Saunders # (Auto) (0.11-0.59) K/uL Activ Coag Time Kaolin (94-140) SECONDS Potassium 3.1 L (3.5-5.1) mmol/L Calcium 8.1 L (8.5-10.1) mg/dl Total Bilirubin 1.3 H (0.2-1) mg/dl Direct Bilirubin 0.3 H (0-0.2) mg/dl AST 125 H (15-37) U/L ALT 115 H (12-78) U/L Total Protein 5.8 L (6.4-8.2) gm/dl Albumin 3.0 L (3.4-5.0) gm/dl Diagnostic Findings Telemetry: On telemetry last evening for about 4 hours he had very frequent premature ventricular beats, sometimes in a pattern of bigeminy and frequent ventricular pairs as well. Otherwise only sporadic premature ventricular beats. PG Care Time/CCT Total # of Minutes Spent Total Time Spent with Patient: Total time spent is greater than 50% in coordination of care (as documented) at patient's floor/unit and/or counseling patient:
--- NOTE | 2019-06-18 13:45 | XRay Report ---
XR chest 1V portable HISTORY: fever COMPARISON: Chest 06/17/2019. FINDINGS: The heart remains borderline enlarged. Mild perihilar interstitial thickening has slightly progressed. No new focal lung consolidations. No pleural effusions. No pneumothorax. IMPRESSION: Slight progression of the mild perihilar interstitial thickening. This could represent developing con gestive change. Electronically signed by: Doe Shoemaker M.D. 06/18/2019 1:44 PM
--- NOTE | 2019-06-18 17:46 | Hospitalist Progress Note ---
Date of Service June 18, 2019 Assessment & Plan (1) ST elevation myocardial infarction (STEMI): Posterior and inferior STEMI on EKG. He had a cardiac arrest secondary to ventricular fibrillation while being prepped for cardiac cath. RCA was found to be occluded with stent subsequently placed Also with 50% mid-LAD stenosis, otherwise no significant disease on cath - Underwent PCI to JAZZY on 06/15; complicated by vfib arrest. - Echo on 06/16 shows EF 65-70% with mild inferior wall hypokinesis No further angina since then - Continue aspirin, ticagrelor, beta-olivier, statin -continue tele monitoring as below for ventricular ectopy (2) RCA occlusion: S/p JAZZY to RCA on 06/15. - See above (3) Cardiac arrest with ventricular fibrillation: Patient underwent cardiac arrest due to ventricular fibrillation as he was being prepped for cardiac catheterization. He was shocked 3 times, received epinephrine and other measures, was intubated x 1-2 days and then extubated, with ROSC. - Presently hemodynamically stable (4) Arthritis: Has long-standing arthritis diffuselym previously took NSAIDs but then stopped, now uses Voltaren gel. - Continue duloxetine 30mg (home dose was 60mg only started about 1 week ago, so not really helping much at this time.) - Patient feels tramadol is helping his arthritis and the pain from his resuscitation (5) Sleep apnea: Patient brought home CPAP. (6) CAD (coronary artery disease): as above -continue ASA, Brilinta, statin on hold for elevated LFTs for now, increasing beta olivier -restart home losartan if BP stable on higher dose metoprolol tomorrow (7) Hypertension: -home losartan on hold -increasing metoprolol to 100mg XL for in AM (50mg po bid of tartrate for today) -holding home chlorthalidone (8) Fever: isolated this AM, could be atelectasis because he really has not gotten out of bed until today since extubation CXR without PNA but w/ interstitial thickening Some brownish sputum -hold on abx for now -if spikes another fever--> blood cultures and start empiric therapy for PNA given sputum production -start IS q1 while awake and encouraged ambulation -elevated transaminases but no tenderness on exam, do not suspect liver/GB issues as cause of fever (9) Shoulder pain, left: likely secondary to CPR, is definitely MSK in nature with +TTP and decreased active and passive ROM -check shoulder xray -may need Ortho f/u as outpt -pt declined topical Voltaren gel (10) Ventricular ectopy: frequent bigem and couplets overnight on tele -increasing metoprolol dose as per Cardio to Toprol XL 100mg daily in AM (and increased tartrate for today) -continue tele monitoring (11) Hypokalemia: replace KCl with po KCL -check BMP in AM -check Magnesium in AM (12) Transaminitis: AST, ALT and TBili mildly elevated Could be from muscle vs liver (both from CPR, hypotension, mechanical trauma) -hold statin -follow LFTs -check CPK in AM (13) DVT prophylaxis: ASA, Brilinta Dispo-remain on tele overnight and if reduced ectopy, could dc tomorrow Subjective Having pain in chest, ribs, and across upper abdomen only with coughing, laughing, and movement. Also having his usual arthritis pain all over in every joint. His left shoulder in particular is really hurting constantly and he cannot abduct his shoulder without pain. He ambulated the halls three times today. He had a fever this AM which is now resolved. He is occasionally coughing up some brownish sputum Review of Systems Review of Systems: All systems reviewed & are unremarkable except as noted in HPI & below Physical Exam Constitutional: WD/WN, vitals as above Eyes: + anicteric sclerae ENMT: external ear and nose normal, oropharynx normal Neck: trachea midline, no thyromegaly Respiratory: normal respiratory effort, lungs clear to auscultation Cardiovascular: RRR, no murmur, no edema Gastrointestinal (Abdomen): normal bowel sounds, soft, nontender, no hepatosplenomegaly Musculoskeletal: Extremities: extremities normal to inspection; no cyanosis and no clubbing Shoulder: + limited ROM (active abduction 10 degrees, passive 90 with pain), + joint line tenderness (+TTP over left AC joint) and + Hawkin's test positive Skin: no rashes, warm and dry Neurologic: moves all extremities and awake; no focal motor deficits Psychiatric: A+Ox3, euthymic affect Results & Data Vital Signs (Past 12 Hours) Vital Signs Temp Pulse Resp BP Pulse Ox 06/18/19 16:00 54 L 06/18/19 15:29 37.3 C 56 L 16 125/75 94 10/21/19 11:45 90 06/18/19 11:30 36.9 C 55 L 20 134/80 91 06/18/19 07:19 37.2 C 57 L 18 143/81 H 90 Laboratory Results 06/18/19 06/18/19 06/15/19 Range/Units 06:53 06:53 21:37 WBC 10.36 (4.8-10.8) K/uL RBC 3.71 L (4.7-6.1) M/uL Hgb 11.5 L (14.0-18.0) g/dL Hct 33.6 L (42-52) % MCV 90.6 (80-100) fL MCH 31.0 (25-34) pg MCHC 34.2 (32-36) g/dL RDW Std Deviation 45.7 (36.4-46.3) fL RDW Coeff of Collins 13.8 (11.5-14.5) % Plt Count 246 (130-400) K/uL MPV 9.6 (7.4-10.4) fL Immature Gran % (Auto) 0.3 % Neut % (Auto) 70.4 % Lymph % (Auto) 17.6 % [place] % (Auto) 7.9 % Eos % (Auto) 3.5 % Baso % (Auto) 0.3 % Immature Gran # (Auto) 0.03 H (0.00-0.02) K/uL Neut # (Auto) 7.30 H (1.4-6.5) K/uL Lymph # (Auto) 1.82 (1.2-3.4) K/uL [place] # (Auto) 0.82 H (0.11-0.59) K/uL Eos # (Auto) 0.36 (0-0.5) K/uL Baso # (Auto) 0.03 (0-0.2) K/uL Activ Coag Time Kaolin 153 H (94-140) SECONDS Sodium 139 (136-145) mmol/L Potassium 3.1 L (3.5-5.1) mmol/L Chloride 105 (98-107) mmol/L Carbon Dioxide 25 (21-32) mmol/L Anion Gap 9.0 (3-11) BUN 18 (7-18) mg/dl Creatinine 1.24 (0.6-1.4) mg/dl Est Cr Clr Drug Dosing 76.5 ml/min Est GFR ( Amer) 72.8 Est GFR (Non-Af Amer) 62.8 BUN/Creatinine Ratio 14.4 (10-20) Glucose 99 (70-99) mg/dl Calcium 8.1 L (8.5-10.1) mg/dl Phosphorus 3.0 (2.5-4.9) mg/dl Magnesium 2.1 (1.8-2.4) mg/dl Total Bilirubin 1.3 H (0.2-1) mg/dl Direct Bilirubin 0.3 H (0-0.2) mg/dl AST 125 H (15-37) U/L ALT 115 H (12-78) U/L Alkaline Phosphatase 58 (45-117) U/L Total Protein 5.8 L (6.4-8.2) gm/dl Albumin 3.0 L (3.4-5.0) gm/dl 06/15/19 Range/Units 21:09 WBC (4.8-10.8) K/uL RBC (4.7-6.1) M/uL Hgb (14.0-18.0) g/dL Hct (42-52) % MCV (80-100) fL MCH (25-34) pg MCHC (32-36) g/dL RDW Std Deviation (36.4-46.3) fL RDW Coeff of Collins (11.5-14.5) % Plt Count (130-400) K/uL MPV (7.4-10.4) fL Immature Gran % (Auto) % Neut % (Auto) % Lymph % (Auto) % [place] % (Auto) % Eos % (Auto) % Baso % (Auto) % Immature Gran # (Auto) (0.00-0.02) K/uL Neut # (Auto) (1.4-6.5) K/uL Lymph # (Auto) (1.2-3.4) K/uL [place] # (Auto) (0.11-0.59) K/uL Eos # (Auto) (0-0.5) K/uL Baso # (Auto) (0-0.2) K/uL Activ Coag Time Kaolin 180 H (94-140) SECONDS Sodium (136-145) mmol/L Potassium (3.5-5.1) mmol/L Chloride (98-107) mmol/L Carbon Dioxide (21-32) mmol/L Anion Gap (3-11) BUN (7-18) mg/dl Creatinine (0.6-1.4) mg/dl Est Cr Clr Drug Dosing ml/min Est GFR ( Amer) Est GFR (Non-Af Amer) BUN/Creatinine Ratio (10-20) Glucose (70-99) mg/dl Calcium (8.5-10.1) mg/dl Phosphorus (2.5-4.9) mg/dl Magnesium (1.8-2.4) mg/dl Total Bilirubin (0.2-1) mg/dl Direct Bilirubin (0-0.2) mg/dl AST (15-37) U/L ALT (12-78) U/L Alkaline Phosphatase (45-117) U/L Total Protein (6.4-8.2) gm/dl Albumin (3.4-5.0) gm/dl Diagnostic Findings CXR personally reviewed by me and agree with the following report: XR chest 1V portable HISTORY: fever COMPARISON: Chest 06/17/2019. FINDINGS: The heart remains borderline enlarged. Mild perihilar interstitial thickening has slightly progressed. No new focal lung consolidations. No pleural effusions. No pneumothorax. IMPRESSION: Slight progression of the mild perihilar interstitial thickening. This could represent developing congestive change. PG Care Time/CCT Total # of Minutes Spent Total Time Spent with Patient: Total time spent is greater than 50% in coordination of care (as documented) at patient's floor/unit and/or counseling patient:
[2019-06-18] MEDS ORDERED: POTASSIUM CHLORIDE 20 MEQ TABCR PO ONE (19:00)
[2019-06-18] MEDS ORDERED: METOPROLOL TARTRATE 50 MG TAB PO SCH (21:00)
--- NOTE | 2019-06-18 23:00 | XRay Report ---
LEFT SHOULDER 3 VIEWS CLINICAL HISTORY: Left shoulder pain. FINDINGS: 3 views of the left shoulder are obtained. No prior studies are available for comparison at the time of dictation. The skeletal structures are osteopenic. There is no radiographic evidence of fracture or dislocation. Productive degenerative change is noted at the acromioclavicular joint. The glenohumeral articulation is preserved. The overlying soft tissues are normal in appearance. The hear t appears enlarged and there is evidence of congestive failure with interstitial edema. IMPRESSION: 1. No acute bony abnormality is identified. 2. There is evidence of congestive failure and interstitial edema. Electronically signed by: Jero Ziegler M.D. 06/18/2019 10:59 PM
[2019-06-19 06:41] LABS: Albumin Level 2.9 gm/dl (3.4-5.0); BUN Creatinine Ratio 14.5 (10-20); Calcium 8.4 mg/dl (8.5-10.1); Creatinine Clr Calc Pharmacy 78.1 ml/min; Est GFR (Non-African American) 64.7; Potassium 3.4 mmol/L (3.5-5.1)
[2019-06-19 06:43] LABS: Albumin Globulin Ratio 0.9 (0.9-2); Bilirubin,Total 1.6 mg/dl (0.2-1); Globulin 3.1 gm/dl (2.5-4.0)
[2019-06-19] MEDS: TICAGRELOR 90 MG TAB PO SCH (08:04)
[2019-06-19] MEDS: ASPIRIN 81 MG CHEW PO SCH (08:04)
[2019-06-19] MEDS: ACETAMINOPHEN 325 MG TAB PO PRN (08:04)
[2019-06-19] MEDS: DULOXETINE HCL 30 MG CAP PO SCH (08:05)
[2019-06-19] MEDS ORDERED: POTASSIUM CHLORIDE 20 MEQ TABCR PO STA (08:58)
[2019-06-19] MEDS ORDERED: METOPROLOL SUCC 50MG EXT REL TAB PO SCH (09:00)
--- NOTE | 2019-06-19 10:15 | Cardiology Progress Note ---
Date of Service June 19, 2019 Assessment & Plan (1) ST elevation myocardial infarction (STEMI): He is doing relatively well following his STEMI with emergent stent placement complicated by ventricular fibrillation with multiple cardioversions and CPR. He has some residual chest and left shoulder discomfort however I believe he did receive some amount of CPR, his symptoms do not suggest ongoing ischemia and his electrocardiogram does not show it. I believe he is doing well following his STEMI and he is now day 4 following that event. I believe it is safe for him to go home now. He will follow-up with his local doctors in the [facility]. (2) Cardiac arrest with ventricular fibrillation: He had ventricular fibrillation associated with a STEMI, this should not predispose him for future events however he should be maintained on a beta- olivier. I was a little concerned about the increase in ventricular ectopy he had on June 17, 2019, it was very frequent premature ventricular beats and ventricular couplets but only occurred for several hours and that was within about 48 hours of his event. I did increase his beta-olivier and he has had no further worrisome ectopy. I would not further evaluate or change treatment but he needs to maintain beta-blockade. 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 He needs to continue risk factor modification, he does not smoke but he is overweight and he does not exercise regularly in a formal way and he has a poor diet according to him and his family. I discussed risk factor modification with him and he will need to go on a healthier diet (I suggested the Mediterranean diet), try to lose weight and exercise more, as well as continue antiplatelet agents and an increase in cholesterol medications over the long run. He also needs to make sure that his blood pressure is under good control. There is probably little else that we can do. His liver function tests have been mildly elevated, that is probably due to his resuscitation but I am a little bit concerned about using high-dose atorvastatin in the setting now. I do not think it reflects an intolerance to statins but that could potentiate it. Since that is a long-term medication I did place it on hold for the moment. I suspect he will be able to start it soon. I would recommend repeating liver function tests in about a week, he has an appointment with his GP around that time, and we could send him home with a prescription for atorvastatin 80 mg daily to start once his liver function tests come back normal. Subjective He is feeling better now. He was ambulating this morning and feeling much less fatigued. He has no exertional chest discomfort, no palpitations and he is tolerating his medications well. His only physical complaint is some left shoulder discomfort which seems to have had something to do with his treatment on presentation. Physical Exam Physical Exam: Constitutional: Alert, cooperative and in no distress. Pulmonary: Clear to auscultation bilaterally. Cardiac: Regular rhythm with no murmur, gallop or rub. Abdomen: Soft, nontender with normal bowel sounds. Extremities: No edema. Skin: No rash, ecchymoses or petechiae. Results & Data Vital Signs (Past 12 Hours) Vital Signs Temp Pulse Pulse Resp BP BP Pulse Ox 06/19/19 07:18 36.6 C 57 L 18 152/82 H 92 06/19/19 04:10 37.1 C 57 L 20 124/73 92 06/19/19 00:00 62 06/18/19 23:20 37.8 C H 62 18 144/73 H 92 Laboratory Results Abnormal lab results 06/15/19 06/15/19 06/19/19 Range/Units 21:09 21:37 05:36 Activ Coag Time Kaolin 180 H 153 H (94-140) SECONDS Potassium 3.4 L (3.5-5.1) mmol/L Calcium 8.4 L (8.5-10.1) mg/dl Total Bilirubin 1.6 H (0.2-1) mg/dl AST 74 H (15-37) U/L ALT 109 H (12-78) U/L Total Creatine Kinase 700 H (39-308) U/L Total Protein 6.0 L (6.4-8.2) gm/dl Albumin 2.9 L (3.4-5.0) gm/dl Diagnostic Findings Telemetry: Sinus rhythm and sinus bradycardia. Occasional premature ventricular beats, no significant ectopy and no nonsustained ventricular tachycardia. PG Care Time/CCT Total # of Minutes Spent Total Time Spent with Patient: Total time spent is greater than 50% in coordination of care (as documented) at patient's floor/unit and/or counseling patient:
[2019-06-19] MEDS ORDERED: LOSARTAN POTASSIUM 50 MG TAB PO SCH (10:45)
--- NOTE | 2019-06-19 11:16 | Discharge Summary ---
Date of Service June 19, 2019 Admission HPI Per Admitting Provider The patient is a 59-year-old male who presented to the emergency department with the development of severe substernal chest pain while driving his motor home. His friend who was with him, noted the severity of his condition, and brought him to the emergency department for assessment. In the emergency department he was found to have [address] elevations in the inferior chest leads, with reciprocal changes in chest leads. He was then converted to a heart alert, and was taken to the [facility] by Dr. Boyce. Principal Diagnosis STEMI, Cardiac arrest Discharge Exam Constitutional WD/WN, vitals as above Eyes + anicteric sclerae ENMT external ear and nose normal, oropharynx normal Neck trachea midline, no thyromegaly Respiratory normal respiratory effort, lungs clear to auscultation Cardiovascular RRR, no murmur, no edema Bilateral groin access sites no hematomas, dressings in place, no bleeding Gastrointestinal (Abdomen) normal bowel sounds, soft, nontender, no hepatosplenomegaly Musculoskeletal Extremities: extremities normal to inspection; no cyanosis and no clubbing Shoulder: + limited ROM (active abduction 10 degrees, passive 90 with pain), + joint line tenderness (+TTP over left AC joint) and + Hawkin's test positive Skin no rashes, warm and dry Neurologic moves all extremities and awake; no focal motor deficits Psychiatric A+Ox3, euthymic affect Discharge Data Allergies Allergy/AdvReac Type Severity Reaction Status Date / Time No Known Allergies Allergy Verified 06/18/19 08:25 Consultations 06/15/19 23:02 Consult Case Management - Discharge Planning Routine 06/15/19 23:05 Consult Fleshing Machine Operator Routine 06/16/19 10:14 Consult Cardiology Routine Procedures Performed Operation Date: 06/15/19 08:45 Actual Procedures p Aspiration/PCI w/JAZZY for Stemi - Darwin Reddy MD s Cath, Left with Cors and Vent - Darwin Reddy MD s Temporary Transcutaneous Pacing - Darwin Reddy MD s Cardiopulmonary Resuscitation - Darwin Reddy MD s Cineradiography w/Routine Exam - Darwin Reddy MD Ordered Studies 06/15/19 20:42 CL Cath Imgs for PACS use only Stat ECHO CXR Left shoulder xray Hospital Course (1) ST elevation myocardial infarction (STEMI): Posterior and inferior STEMI on EKG. He had a cardiac arrest secondary to ventricular fibrillation while being prepped for cardiac cath. RCA was found to be occluded with stent subsequently placed Also with 50% mid-LAD stenosis, otherwise no significant disease on cath - Underwent PCI to JAZZY on 06/15; complicated by vfib arrest. - Echo on 06/16 shows EF 65-70% with mild inferior wall hypokinesis No further angina since then - Continue aspirin, ticagrelor, beta-olivier, statin on hold temporarily for elevated transaminases but will be restarted after LFTs improve after discharge -had ventricular ectopy for 48 hours afterwards but then improved with increased beta blockade -will need cardiac rehab -will need to get established with Cardiology in his area where he lives (2) RCA occlusion: S/p JAZZY to RCA on 06/15. - See above (3) Cardiac arrest with ventricular fibrillation: Patient underwent cardiac arrest due to ventricular fibrillation as he was being prepped for cardiac catheterization. He was shocked 3 times, received epinephrine and other measures, achieved ROSC, was intubated x 1-2 days and then extubated - Presently hemodynamically stable (4) Arthritis: Has long-standing arthritis diffusely previously took NSAIDs but then stopped, now uses Voltaren gel. - Continue duloxetine - Patient feels tramadol is helping his arthritis and the pain from his resuscitation-continue tramadol for MSK pains (5) Sleep apnea: Patient brought home CPAP. (6) CAD (coronary artery disease): as above -continue ASA, Brilinta, statin on hold for elevated LFTs for now, increased beta olivier -continue home losartan (7) Hypertension: -restarted losartan on day of discharge as BPs remained elevated on higher dose of metoprolol -continue metoprolol 100mg XL qAM -dc home chlorthalidone given persistent hypokalemia and now also on metoprolol- could be added back by PCP if BPs elevated at office follow up appt (8) Fever: isolated one time, then another lower grade temp but not true fever, could be atelectasis as he had not been mobile--> but now that more mobile, has improved CXR without PNA but w/ interstitial thickening Some brownish sputum and is now resolved no antibiotics needed -elevated transaminases but no tenderness on exam, do not suspect liver/GB issues as cause of fever (9) Shoulder pain, left: likely secondary to CPR/trauma, is definitely MSK in nature with +TTP and decreased active and passive ROM shoulder xray negative for fracture but has OA -may need Ortho f/u as outpt -pt declined topical Voltaren gel (10) Ventricular ectopy: frequent bigem and couplets overnight on tele on hospital day#3 Resolved after increased dose metoprolol -continue Toprol XL 100mg qAM (11) Hypokalemia: replaced KCl with po KCL and improved but still slightly low at 3.4 on day of dc -check BMP as outpt in 1 week (12) Transaminitis: AST, ALT and TBili mildly elevated--> improved on day of dc but still slightly high CPK mildly elevated at 700, all likely from some muscle breakdown from CPR Could be from combination of muscle and liver (both from CPR, hypotension, mechanical trauma) -hold statin until after LFTs repeated with PCP within 1 week--> then restart high intensity statin once LFTs return to normal -follow LFTs in 1 week (13) DVT prophylaxis: ASA, Brilinta Dispo-stable for dc to home Total Time Total Time Spent Total Time Spent (In Minutes): >30 min Total Time Includes: Examination of the Patient, Discharge Planning, Medication Reconciliation and Communication With Other Providers (Dr. Rosa, Cardiology) Discharge Plan Discharge Items Patient Disposition: Home - Self-Care Reason For Visit: CARDIAC ARREST,RCA OCCLUSION WITH STENT PLACEMENT Discharge Diagnosis: STEMI, Cardiac arrest Condition on Discharge: Fair Follow-up/Referrals: Miguel Rosas M.D. [Primary Care Provider] - 06/26/19 10:20 am (Please, follow up with Dr. Rosas on TuesdayJune 26 at 10:20 am. *This is at the main location on [address] If you want to change this appointment, call the office at [phone].) Addtl Attending Provider Instructions: Home Care: * Take your medications exactly as directed. Don't skip doses. * Remember that recovery after a heart attack takes time. Plan to rest for at lease 4-8 weeks while you recover. Then return to normal activity when your doctor says it's okay. * Ask your doctor about joining a heart rehabilitation program. * Tell your doctor if you are feeling depressed. Feelings of sadness are common after a heart attack, but it is important that you speak to someone if you are feeling overwhelmed by these feelings. * If you are having chest pain, call 911 for an ambulance. Do NOT drive yourself to the hospital. * Ask your family members to learn CPR. * Learn to take your own blood pressure and pulse. Keep a record of your results. Ask your doctor when you should seek emergency medical attention. He or she will tell you which blood pressure reading is dangerous. Lifestyle Changes: * Maintain a healthy weight. Get help to lose any extra pounds. * Cut back on salt. * Limit canned, dried, packaged, and fast foods. * Don't add salt to your food. * Season foods with herbs instead of salt when you cook. * Break the smoking habit. Enroll in a stop-smoking program to improve your chances of success. * Limit fatty foods. * Ask your doctor about having your lipid levels checked regularly. * Build up your activity according to your doctor's recommendation. * Ask your doctor when it's okay to resume sexual activity. * Try to manage stress. Follow Up: It is important for you to keep your follow up appointments with your medical provider. You had new medications added for your heart. It is VERY IMPORTANT to take these as prescribed. Please have your PCP check your kidney function, potassium levels, and liver enzymes within 1 week. If liver tests are improved, you can then restart your atorvastatin at the higher dose we prescribed you. You can take tramadol as needed for pain and do NOT take any NSAIDs (ibuprofen, Aleve, naproxen, etc.) Please follow up with your PCP within 1 week and get a referral to a [facility] in the area where you live. Stand-Alone Forms: My [facility] Medications and DC Order Prescriptions: New Brilinta 90 mg Tablet 90 mg PO BID Qty: 60 RF: 0 atorvastatin 80 mg tablet 80 mg PO DAILY Qty: 30 RF: 0 metoprolol succinate 100 mg tablet extended release 24 hr 100 mg PO DAILY Qty: 30 RF: 0 acetaminophen [Mapap (acetaminophen)] 325 mg Tablet 650 mg PO Q4H PRN (Reason: pain) Qty: 30 RF: 0 aspirin 81 mg Tablet,Chewable 81 mg PO DAILY Qty: 30 RF: 0 tramadol 50 mg Tablet 50 mg PO Q4H PRN (Reason: pain) Qty: 20 RF: 0 Continued losartan 100 mg Tablet 100 mg PO DAILY RF: 0 duloxetine 60 mg Capsule,Delayed Release(Dr/Ec) 60 mg PO DAILY RF: 0 omega 7-inr-lbt-fish oil [Fish Oil] 1,000 mg (120 mg-180 mg) Capsule 1 cap PO BID RF: 0 Discontinued chlorthalidone 25 mg Tablet 25 mg PO DAILY RF: 0 atorvastatin 20 mg Tablet 20 mg PO HS RF: 0 Discharge Orders: Discharge Order (Routine); Ordered 06/19/19 Ordered By: Amelia Kilpatrick Admission Data Admit Date/Time: 06/15/19 22:47 Attending Provider: Amelia Kilpatrick Admit Provider: Bandar Mir Primary Care Provider: Miguel Rosas Other Providers: Rivera Guajardo ; Deshawn Rosa
== END 2019-06-19 12:55 | disposition home or self-care (01) | DRG 246 ==
LOC: ED 20:06 → CC 20:54 → 1E 20:54 → SUATTDRO 22:47 → 2W 06-17 12:42
PROC: CLB.TTP (2019-06-15 08:45)
PROC: CLB.CPR (2019-06-15 08:45)